=== PATIENT | female | born 1960 | race Caucasian/White ===

== ENCOUNTER 2018-01-11 11:59 | Observation (INO) | payer OTHER ==
[2018-01-11] MEDS ORDERED: TORAdol 30 mg Injection ONE (12:27)
--- NOTE | 2018-01-11 12:27 | ERPHSYRPT ---
- History of Present Illness Time Seen by Provider: 01/11/18 12:22 Historian: patient, family Exam Limitations: no limitations Patient Subjective Stated Complaint: Chest Pain beginning earlier today Triage Nursing Assessment: Pt presents to the ED with complaints of mid sternal chest pain, back and shoulder pain that began approximately 2 hour ago. Pt states diarrhea on monday. Pt denies other complaints at this time, no distress noted, skin PWD. Physician History: The patient is a 57-year-old female complaining of a sudden onset of "not feeling well". This began about an hour ago. She also states of having some pain in her epigastric region and between her shoulder blades in her back. She denies nausea or vomiting. She denies shortness of breath. She denies sweating. She thought maybe she needed to eat something to take away the pain. She had a Sprite in a granola bar with no effect. About 2 days ago she had some episodes of diarrhea. Her past medical history is significant for depression, diabetes, high cholesterol. Her past surgical history is significant for cholecystectomy, appendectomy, and partial hysterectomy. Timing/Duration: hour(s) (1) Activities at Onset: none Quality: aching Location: epigastric Chest Pain Radiation: back Severity of Pain-Max: moderate Severity of Pain-Current: moderate Modifying Factors: Improves With: eating (without relief) Associated Symptoms: denies symptoms Prior Chest Pain/Cardiac Workup: no prior chest pain Nitro Today/Relief: no nitro taken today Aspirin Treatment Today: 81 mg x 1, provided at home Allergies/Adverse Reactions: meperidine HCl [From Demerol] Allergy (Verified 10/05/16 12:20) Nausea and Vomiting Sulfa (Sulfonamide Antibiotics) Allergy (Verified 10/05/16 12:20) Swelling Home Medications: Aspirin 81 mg PO DAILY 04/10/14 [History] Metformin HCl 500 mg PO BID 04/10/14 [History] Paroxetine HCl [Paxil] 20 mg PO HS 04/10/14 [History] Bupropion HCl Xl 150 mg [Wellbutrin XL 150 MG] 150 mg PO DAILY 01/11/18 [ History] Lovastatin 40 mg PO DAILY 01/11/18 [History] Hx Tetanus, Diphtheria Vaccination/Date Given: Yes Hx Influenza Vaccination/Date Given: Yes Hx Pneumococcal Vaccination/Date Given: No Immunizations Up to Date: Yes - Review of Systems Constitutional: No Fever, No Chills Eyes: No Symptoms Ears, Nose, & Throat: No Symptoms Respiratory: No Cough, No Dyspnea Cardiac: Chest Pain, No Edema, No Syncope Abdominal/Gastrointestinal: Abdominal Pain Genitourinary Symptoms: No Dysuria Musculoskeletal: No Back Pain, No Neck Pain Skin: No Rash Neurological: No Dizziness, No Focal Weakness, No Sensory Changes Psychological: No Symptoms Endocrine: No Symptoms Hematologic/Lymphatic: No Symptoms Immunological/Allergic: No Symptoms All Other Systems: Reviewed and Negative - Past Medical History Pertinent Past Medical History: Yes Neurological History: No Pertinent History ENT History: No Pertinent History Cardiac History: No Pertinent History Respiratory History: No Pertinent History Endocrine Medical History: Diabetes Type II Musculoskeletal History: No Pertinent History GI Medical History: GERD, Gallbladder Disease History: No Pertinent History Psycho-Social History: Depression Female Reproductive Disorders: Endometriosis, Fibroids - Past Surgical History Past Surgical History: Yes Neuro Surgical History: No Pertinent History Cardiac: Cardiac Catheterization Respiratory: No Pertinent History Gastrointestinal: No Pertinent History, Appendectomy, Cholecystectomy Genitourinary: No Pertinent History Musculoskeletal: No Pertinent History Female Surgical History: Section, Tubal Ligation, Other Other Surgical History: expl.lap for endometriosis with removal of endo.,c- section x two, colonoscopy,egd - Social History Smoking Status: Never smoker Exposure to second hand smoke: No Drug Use: none Patient Lives Alone: No - Female History Hx Now: No - Nursing Vital Signs Nursing Vital Signs: Initial Vital Signs Temperature 97.4 F 01/11/18 12:04 Pulse Rate 65 01/11/18 12:04 Respiratory Rate 15 01/11/18 12:04 Blood Pressure 113/81 01/11/18 12:04 O2 Sat by Pulse Oximetry 100 01/11/18 12:04 Pain Scale Pain Intensity 3 - Physical Exam General Appearance: mild distress Eye Exam: PERRL/EOMI, eyes nml inspection Ears, Nose, Throat Exam: normal ENT inspection, moist mucous membranes Neck Exam: normal inspection, non-tender, supple, full range of motion Respiratory Exam: normal breath sounds, lungs clear, No respiratory distress Cardiovascular Exam: regular rate/rhythm, normal heart sounds Gastrointestinal/Abdomen Exam: tenderness (epigastric) Pelvic Exam: not done Rectal Exam: not done Back Exam: normal inspection, No CVA tenderness, No vertebral tenderness Extremity Exam: normal inspection, normal range of motion Neurologic Exam: alert, oriented x 3, cooperative, normal mood/affect, sensation nml, No motor deficits Skin Exam: normal color, warm, dry SpO2 Interpretation: normal SpO2: 100 Oxygen Delivery: Room Air - Course EKG Interpreted by Me: RATE, Sinus Rhythm, NORMAL AXIS, NORMAL INTERVALS, NORMAL QRS, NORMAL ST-T, Other (No change compared to EKG 04/04/14.) - Radiology Exams Chest X-ray Interpretation: Reviewed by me, Teleradiologist Report, Negative (per Dr Real) - CT Exams Abdomen/Pelvis CT Interpretation: Negative (No aortic aneurysm/dissection per Dr Real), Tele- radiologist Report Ordered Tests: Active Orders 24 hr Category Date Time Status [employer] Supervisor STAT Care 01/11/18 12:29 Active EKG-ER Only STAT Care 01/11/18 12:28 Active IV Insertion STAT Care 01/11/18 12:20 Active Orthostatic Vital Signs STAT Care 01/11/18 12:30 Active ABDOMEN AND PELVIS W CONTRAST [CT] Stat Exams 01/11/18 14:10 Completed CHEST 2 VIEWS (PA AND LAT) Stat Exams 01/11/18 12:28 Completed CBC W DIFF Stat Lab 01/11/18 12:20 Completed CK-Creatinine Phosphokinase Stat Lab 01/11/18 12:20 Completed CMP Stat Lab 01/11/18 12:20 Completed D-DIMER QUANTITATION Stat Lab 01/11/18 12:20 Completed NT PRO BNP Stat Lab 01/11/18 12:20 Completed PROTIME WITH INR Stat Lab 01/11/18 12:20 Completed PTT Stat Lab 01/11/18 12:20 Completed TROPONIN Q3H Lab 01/11/18 12:20 Completed TROPONIN Q3H Lab 01/11/18 15:30 Ordered TROPONIN Q3H Lab 01/11/18 18:30 Ordered TROPONIN Q3H Lab 01/11/18 21:30 Ordered TROPONIN Q3H Lab 01/12/18 00:30 Ordered UA W/RFX UR CULTURE Stat Lab 01/11/18 12:31 Uncollected Medication Summary Discontinued Medications Generic Name Dose Route Start Last Admin Trade Name Freq PRN Reason Stop Dose Admin Aspirin 243 mg 01/11/18 12:28 01/11/18 12:34 Baby Aspirin 81 Mg Chew PO 01/11/18 12:29 243 mg STAT ONE Administration Aspirin Confirm 01/11/18 12:30 Baby Aspirin 81 Mg Chew Administered 01/11/18 12:31 Dose 243 mg .ROUTE .STK-MED ONE Famotidine 20 mg 01/11/18 12:28 01/11/18 12:35 Pepcid 20 Mg Vial IV 01/11/18 12:29 20 mg STAT ONE Administration Famotidine Confirm 01/11/18 12:33 Pepcid 20 Mg Vial Administered 01/11/18 12:34 Dose 20 mg IV .STK-MED ONE Sodium Chloride 1,000 mls @ 999 mls/hr 01/11/18 12:28 01/11/18 12:34 Sodium Chloride 0.9% 1000 Ml IV 01/11/18 13:28 999 mls/hr .Q1H1M STA Administration Sodium Chloride Confirm 01/11/18 12:33 Sodium Chloride 0.9% 1000 Ml Administered 01/11/18 12:34 Dose 1,000 mls @ ud .ROUTE .STK-MED ONE Ketorolac Tromethamine Confirm 01/11/18 12:27 Toradol 30 Mg Injection Administered 01/11/18 12:28 Dose 30 mg .ROUTE .STK-MED ONE Ketorolac Tromethamine 30 mg 01/11/18 12:30 01/11/18 12:35 Toradol 30 Mg Injection IV 01/11/18 12:31 30 mg STAT ONE Administration Morphine Sulfate 4 mg 01/11/18 14:07 01/11/18 14:17 Morphine Sulfate 4 Mg Inj IV 01/11/18 14:08 4 mg STAT ONE Administration Morphine Sulfate Confirm 01/11/18 14:15 Morphine Sulfate 4 Mg Inj Administered 01/11/18 14:16 Dose 4 mg .ROUTE .STK-MED ONE Ondansetron HCl 4 mg 01/11/18 12:28 01/11/18 12:35 Zofran 4 Mg/2 Ml Vial IV 01/11/18 12:29 4 mg STAT ONE Administration Ondansetron HCl Confirm 01/11/18 12:33 Zofran 4 Mg/2 Ml Vial Administered 01/11/18 12:34 Dose 4 mg .ROUTE .STK-MED ONE Lab/Rad Data: Laboratory Result Diagrams 01/11/18 12:20 01/11/18 12:20 Laboratory Results 01/11/18 01/11/18 01/11/18 Range/Units 12:20 12:20 12:20 WBC (4.0-10.5) K/mm3 RBC (4.1-5.4) M/mm3 Hgb (12.0-16.0) gm/dl Hct (35-47) % MCV (78-100) fl MCH (26-32) pg MCHC (32-36) g/dl RDW (11.5-14.0) % Plt Count (150-450) K/mm3 MPV (6-9.5) fl Gran % (36.0-66.0) % Eos # (Auto) (0-0.5) Absolute Lymphs (auto) (1.0-4.6) Absolute Monos (auto) (0.0-1.3) Lymphocytes % (24.0-44.0) % Monocytes % (0.0-12.0) % Eosinophils % (0.00-5.0) % Basophils % (0.0-0.4) % Absolute Granulocytes (1.4-6.9) Basophils # (0-0.4) PT 12.2 (9.95-12.35) SECONDS INR 1.05 (0.8-3.0) APTT 29.5 (25.3-37.0) SECONDS D-Dimer 330 (215-500) ng/mL Sodium 144 (137-145) mmol/L Potassium 3.6 (3.5-5.1) mmol/L Chloride 105 (98-107) mmol/L Carbon Dioxide 27 (22-30) mmol/L Anion Gap 16.0 H (5-15) MEQ/L BUN 14 (7-17) mg/dL Creatinine 0.79 (0.52-1.04) mg/dL Estimated GFR > 60.0 ML/MIN Glucose 105 (74-106) mg/dL Calcium 9.4 (8.4-10.2) mg/dL Total Bilirubin 1.20 (0.2-1.3) mg/dL AST 79 H (14-36) U/L ALT 34 (0-35) U/L Alkaline Phosphatase 166 H (38-126) U/L Creatine Kinase 62 (30-135) U/L Troponin I < 0.012 (0.000-0.034) ng/mL NT-Pro-B Natriuret Pep 55.9 (0-900) pg/mL Serum Total Protein 7.5 (6.3-8.2) g/dL Albumin 4.3 (3.5-5.0) g/dL 01/11/18 Range/Units 12:20 WBC 7.7 (4.0-10.5) K/mm3 RBC 4.48 (4.1-5.4) M/mm3 Hgb 13.8 (12.0-16.0) gm/dl Hct 40.7 (35-47) % MCV 90.8 (78-100) fl MCH 30.8 (26-32) pg MCHC 33.9 (32-36) g/dl RDW 12.3 (11.5-14.0) % Plt Count 289 (150-450) K/mm3 MPV 9.2 (6-9.5) fl Gran % 65.4 (36.0-66.0) % Eos # (Auto) 0.23 (0-0.5) Absolute Lymphs (auto) 1.95 (1.0-4.6) Absolute Monos (auto) 0.47 (0.0-1.3) Lymphocytes % 25.2 (24.0-44.0) % Monocytes % 6.1 (0.0-12.0) % Eosinophils % 3.0 (0.00-5.0) % Basophils % 0.3 (0.0-0.4) % Absolute Granulocytes 5.06 (1.4-6.9) Basophils # 0.02 (0-0.4) PT (9.95-12.35) SECONDS INR (0.8-3.0) APTT (25.3-37.0) SECONDS D-Dimer (215-500) ng/mL Sodium (137-145) mmol/L Potassium (3.5-5.1) mmol/L Chloride (98-107) mmol/L Carbon Dioxide (22-30) mmol/L Anion Gap (5-15) MEQ/L BUN (7-17) mg/dL Creatinine (0.52-1.04) mg/dL Estimated GFR ML/MIN Glucose (74-106) mg/dL Calcium (8.4-10.2) mg/dL Total Bilirubin (0.2-1.3) mg/dL AST (14-36) U/L ALT (0-35) U/L Alkaline Phosphatase (38-126) U/L Creatine Kinase (30-135) U/L Troponin I (0.000-0.034) ng/mL NT-Pro-B Natriuret Pep (0-900) pg/mL Serum Total Protein (6.3-8.2) g/dL Albumin (3.5-5.0) g/dL - Progress Progress: improved Air Movement: good Progress Note: 01/11/18 14:52 After pepcid 20 mg, zofran 4 mg, toradol 30 mg, MSO4 4 mg, and NS by IV, pt is feeling better. Discussed pt with Dr Glasgow who accepts pt to observation. Blood Culture(s) Obtained: No Antibiotics given: No Discussed with Dr.: Myah Will see patient in: hospital (observation) Counseled pt/family regarding: lab results, diagnosis, rad results - Departure Time of Disposition: 14:53 Departure Disposition: Observation (per Dr Glasgow) Clinical Impression: Chest pain Condition: Stable Critical Care Time: No Referrals: ACACIA GLASGOW [Primary Care Provider] -
[2018-01-11] MEDS ORDERED: Zofran 4 MG/2 ML VIAL IV ONE (12:28)
[2018-01-11] MEDS ORDERED: Pepcid 20 MG VIAL IV ONE ×2 (12:28→12:33)
[2018-01-11] MEDS ORDERED: Sodium Chloride 0.9% 1000 ML 1,000 ML IV STA (12:28)
[2018-01-11] MEDS ORDERED: BABY ASPIRIN 81 MG CHEW PO ONE (12:28)
[2018-01-11] MEDS ORDERED: BABY ASPIRIN 81 MG CHEW ONE (12:30)
[2018-01-11] MEDS ORDERED: TORAdol 30 mg Injection IV ONE (12:30)
[2018-01-11] MEDS ORDERED: Sodium Chloride 0.9% 1000 ML 1,000 ML ONE (12:33)
[2018-01-11] MEDS ORDERED: Zofran 4 MG/2 ML VIAL ONE (12:33)
[2018-01-11 12:36] LABS: BASOPHIL % 0.3 % (0.0-0.4); Basophil (Absolute #) 0.02 (0-0.4); Eosinophil (Absolute #) 0.23 (0-0.5); Granulocyte Absolute (ANC) 5.06 (1.4-6.9); Granulocytes % 65.4 % (36.0-66.0); Hematocrit 40.7 % (35-47); Hemoglobin 13.8 gm/dl (12.0-16.0); Lymphocyte (Absolute #) 1.95 (1.0-4.6); Lymphocytes % 25.2 % (24.0-44.0); Mean Cell Volume 90.8 fl (78-100); Mean Corpuscular Hemoglobin 30.8 pg (26-32); Mean Corpuscular Hgb Concent. 33.9 g/dl (32-36); Mean Platelet Volume 9.2 fl (6-9.5); Monocyte (Absolute #) 0.47 (0.0-1.3); Monocytes % 6.1 % (0.0-12.0); Platelet Count 289 K/mm3 (150-450); Red Blood Count 4.48 M/mm3 (4.1-5.4); Red Cell Distribution Width 12.3 % (11.5-14.0); White Blood Count 7.7 K/mm3 (4.0-10.5)
[2018-01-11 12:43] LABS: ALBUMIN 4.3 g/dL (3.5-5.0); ALKALINE PHOSPHATASE 166 U/L (38-126); BLOOD UREA NITROGEN 14 mg/dL (7-17); CHLORIDE 105 mmol/L (98-107); CK-Creatinine Phosphokinase 62 U/L (30-135); Calcium 9.4 mg/dL (8.4-10.2); Carbon Dioxide 27 mmol/L (22-30); Creatinine 1 0.79 mg/dL (0.52-1.04); Glucose 105 mg/dL (74-106); Potassium 3.6 mmol/L (3.5-5.1); SGOT/AST 79 U/L (14-36); SGPT/ALT 34 U/L (0-35); SODIUM 144 mmol/L (137-145); Total Protein 7.5 g/dL (6.3-8.2)
[2018-01-11 12:51] LABS: NT PRO BNP 55.9 pg/mL (0-900)
[2018-01-11 12:52] LABS: INR 1.05 (0.8-3.0)
[2018-01-11 12:55] LABS: PTT 29.5 SECONDS (25.3-37.0)
--- NOTE | 2018-01-11 13:07 | XRAY ---
Indication: Chest pain. Comparison: October 04, 2016. PA/lateral chest again demonstrates normal heart and lungs. Bony thorax intact. No new/acute findings.
[2018-01-11] MEDS ORDERED: MORPHINE SULFATE 4 MG INJ IV ONE (14:07)
[2018-01-11] MEDS ORDERED: MORPHINE SULFATE 4 MG INJ ONE (14:15)
--- NOTE | 2018-01-11 14:29 | XRAY ---
Indication: Lower chest/upper abdomen pain. Low blood pressure and heart rate. CTA chest, abdomen, and pelvis performed with special attention to the thoracoabdominal aorta using 80 cc Isovue 370 contrast. Two-dimensional sagittal and coronal reformatted images obtained. Comparison: CT renal stone study March 21, 2011. Thoracoabdominal aorta is normal in course and caliber without aneurysm/dissection or arteriosclerotic disease. Normal patent branching celiac, superior mesenteric, inferior mesenteric, and renal arteries. Visualized pelvic iliac arteries are also normal in CTA appearance. Heart is not enlarged. No pathologic mediastinal/hilar lymphadenopathy. Stable small hiatal hernia. Examination of the lung parenchyma demonstrates mild bilateral dependent atelectasis. Stable small left posterior gutter calcified granuloma. No suspicious pulmonary mass, infiltrate, or effusion. Noncontrasted stomach and bowel loops appear nonobstructed. Again previous appendectomy. Interval cholecystectomy. No free fluid/air. Remaining liver, pancreas, spleen, adrenal glands, kidneys, ureters, and bladder appear unremarkable. IVC unremarkable. No pathologic with apparent new lymphadenopathy. Osseous structures intact with minimal lower lumbar degenerative changes. Stable tiny fatty umbilical hernia. No ventral or inguinal hernias. Impression: 1. Normal thoracoabdominal aorta. 2. Stable small hiatal hernia, left lung base calcified granuloma, and tiny fatty umbilical hernia. 3. Remaining CTA chest, abdomen, and pelvis is negative. CT DI 22.01.
[2018-01-11 14:56] LABS: Appearance CLEAR (CLEAR); Bilirubin NEGATIVE (NEGATIVE); Blood NEGATIVE Ery/ul (0-5); Glucose NEGATIVE (NEGATIVE); Ketones NEGATIVE (NEGATIVE); Leukocyte Esterase NEGATIVE (NEGATIVE); Nitrite NEGATIVE (NEGATIVE); Protein,Urine Dip NEGATIVE (Negative); Specific Gravity 1.005 (1.005-1.025); Urobilinogen NORMAL mg/dL (0-1)
[2018-01-11] MEDS ORDERED: Versed 2 MG/2 ML Injection IV ONE (15:32)
[2018-01-11] MEDS ORDERED: DIPRIVAN 200 MG/20 ML IV ONE (15:32)
[2018-01-11] MEDS ORDERED: Zofran 4 MG/2 ML VIAL IV PRN (15:34)
[2018-01-11] MEDS ORDERED: MAALOX ES 30 ML UNIT DOSE PO PRN (15:34)
[2018-01-11] MEDS ORDERED: Nitrostat 0.4 MG Tablet SL PRN (15:34)
[2018-01-11] MEDS ORDERED: TYLENOL 325 MG PO PRN (15:34)
[2018-01-11] MEDS ORDERED: Senokot-S Tablet PO PRN (15:34)
[2018-01-11] MEDS ORDERED: MILK OF MAGNESIA 30 ML PO PRN (15:34)
[2018-01-11] MEDS ORDERED: Protonix 40MG Tablet PO SCH (17:15)
[2018-01-11] MEDS ORDERED: Protonix 40MG Tablet ONE (18:52)
[2018-01-11] MEDS: MORPHINE SULFATE 4 MG INJ IV PRN (20:28)
[2018-01-11] MEDS ORDERED: Paxil 20 MG PO SCH (22:00)
[2018-01-11] MEDS ORDERED: ZOCOR 20MG PO SCH (22:00)
[2018-01-11] MEDS ORDERED: NON-FORMULARY ITEM (Lovastatin [Lovastatin] 40 MG) PO SCH (22:00)
--- NOTE | 2018-01-11 22:36 | PCM.HP ---
History of Present Illness - Chief Complaint Chief Complaint: chest pain History of Present Illness: is a 57 year old female pt of mine from [facility] who came to ER today with epigastric pain. She was feeling OK this morning, then around 10 am had epigastric pain radiating to the mid back and shoulders. She was unable to sit still due to 9/10 pressure and discomfort. Some mild SOB and nausea; no palpitations. She felt presyncopal due to lightheadedness and weakness. 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 Her BP was 90 systolic which is quite low for her. She had an EKG and was told to go the the ER. In the ER her EKG was found to be unchanged from 4 yrs ago and her troponin was negative. WBC was normal. She did have an elevated AST to 79 and an alkaline phosphatase of 166. Her gallbladder has been removed. She had toradol and her pain went from 9/10 to 7/10. Now after having had morphine her pain is 3/10. She has not been pain free. For the past 2-3 weeks she has been having nausea and eating many small meals instead of big meals. No vomiting. Yesterday she was incontinent of sudden diarrhea but generally she is constipated. She has not been taking NSAIDs. Denies melena or hematochezia. For the last several weeks she has also complained of L flank pain. - Review of Systems Constitutional: Fatigue, Weakness Respiratory: Short Of Breath Cardiac: Chest Pain Abdominal/Gastrointestinal: Abdominal Pain, Nausea, Diarrhea, Constipation, Appetite Changes Genitourinary Symptoms: Flank Pain Psychological: Anxiety, Depression, No Suicidal Ideations Medications & Allergies Home Medications: Home Medication List Aspirin 81 mg PO DAILY 04/10/14 [History Confirmed 01/11/18] Metformin HCl 500 mg PO BID 04/10/14 [History Confirmed 01/11/18] Paroxetine HCl [Paxil] 20 mg PO HS 04/10/14 [History Confirmed 01/11/18] Bupropion HCl Xl 150 mg [Wellbutrin XL 150 MG] 150 mg PO DAILY 01/11/18 [ History Confirmed 01/11/18] Lovastatin 40 mg PO HS 01/11/18 [History Confirmed 01/11/18] Omeprazole 20 MG [Prilosec 20 mg] 40 mg PO DAILY PRN 01/11/18 [History Confirmed 01/11/18] Allergies/Adverse Reactions: Allergies Allergy/AdvReac Type Severity Reaction Status Date / Time meperidine HCl [From Demerol] Allergy Nausea and Verified 10/05/16 12:20 Vomiting Sulfa (Sulfonamide Allergy Swelling Verified 10/05/16 12:20 Antibiotics) - Past Medical History Past Medical History: Yes Neurological History: No Pertinent History ENT History: No Pertinent History Cardiac History: No Pertinent History Respiratory History: No Pertinent History Endocrine Medical History: Diabetes Type II Musculoskelatal History: No Pertinent History GI Medical History: GERD, Gallbladder Disease History: No Pertinent History Pyscho-Social History: Depression Reproductive Disorders: Endometriosis, Fibroids - Female History Are you now?: No - Past Surgical History Past Surgical History: Yes Neuro Surgical History: No Pertinent History Cardiac History: Cardiac Catheterization Respiratory Surgery: No Pertinent History GI Surgical History: No Pertinent History, Appendectomy, Cholecystectomy Genitourinary Surgical Hx: No Pertinent History Musculskeletal Surgical Hx: No Pertinent History Female Surgical History: Section, Tubal Ligation, Other Other Surgical History: expl.lap for endometriosis with removal of endo.,c- section x two, colonoscopy,egd - Social History Smoking Status: Never smoker Exposure to second hand smoke: No Alcohol: None Drug Use: none - Physical Exam Vital Signs: Vital Signs - 24 hr Temp Pulse Resp BP Pulse Ox 01/11/18 20:00 97.6 F 64 17 112/64 97 01/11/18 16:00 97.6 F 63 16 150/72 99 01/11/18 15:46 97.4 F 61 12 158/75 100 01/11/18 15:40 97.4 F 61 12 158/75 100 01/11/18 15:34 100 01/11/18 14:57 100 01/11/18 14:50 97.4 F 61 16 158/75 92 L 01/11/18 14:46 58 L 16 126/88 100 01/11/18 14:33 54 L 16 137/75 97 01/11/18 14:07 66 16 116/65 98 01/11/18 12:56 63 16 121/72 100 01/11/18 12:04 97.4 F 65 15 113/81 100 General Appearance: no apparent distress, alert Neurologic Exam: oriented x 3, cooperative Eye Exam: eyes nml inspection Ears, Nose, Throat Exam: moist mucous membranes Neck Exam: normal inspection, non-tender, No mass, No lymphadenopathy Respiratory Exam: normal breath sounds, lungs clear, No crackles/rales, No rhonchi, No wheezing Cardiovascular Exam: regular rate/rhythm, normal heart sounds, No murmur Gastrointestinal/Abdomen Exam: soft, normal bowel sounds, tenderness (epigastrum ; somewhat in RUQ and LUQ), guarding (mildly in epigastrum), No distention, No mass, No rebound Back Exam: normal inspection, CVA tenderness (on R), No rash Extremity Exam: normal inspection, No pedal edema, No swelling Skin Exam: normal color, warm, dry, No rash Results - Labs Lab/Micro Results: Lab Results-Last 24 Hours 01/11/18 01/11/18 01/11/18 Range/Units 15:43 17:08 18:30 Hemoglobin A1c 5.61 (4.5-6.0) % Troponin I < 0.012 < 0.012 (0.000-0.034) ng/mL 01/11/18 Range/Units 21:47 Hemoglobin A1c (4.5-6.0) % Troponin I < 0.012 (0.000-0.034) ng/mL - Other Procedures and Tests Respiratory Therapy 01/12/18 05:00 EKG ONCE 01/13/18 05:00 EKG ONCE 01/14/18 05:00 EKG ONCE Assessment/Plan (1) Chest pain Current Visit: Yes Status: Acute Assessment & Plan: will do serial troponins to rule out CO. Code(s): R07.9 - CHEST PAIN, UNSPECIFIED (2) Epigastric pain Current Visit: Yes Status: Acute Assessment & Plan: Differential includes nephrolithiasis, bile duct obstruction, peptic ulcer disease, pancreatitis. With her recent history of a few weeks of nausea, I would like for her to have an EGD (last done by Dr. Sol approx 1 year ago). Added amylase and lipase to her present labs. Do u/s in the morning (RUQ) - s/ p cholecystectomy but could have a stone or have passed a stone recently. Repeat CMP in a.m. Will discuss her CT with Dr. Farrell, may need to repeat her CT without contrast so as to not obscure a stone. Restart IV fluids. Code(s): R10.13 - EPIGASTRIC PAIN (3) Nausea Current Visit: Yes Status: Acute Code(s): R11.0 - NAUSEA
[2018-01-11] MEDS: Sodium Chloride 0.9% 1000 ML 1,000 ML IV SCH (22:40)
[2018-01-11 22:45] LABS: AMYLASE 56 U/L (30-110); LIPASE 144 U/L (23-300)
[2018-01-12 02:57] LABS: BASOPHIL % 0.5 % (0.0-0.4); Basophil (Absolute #) 0.03 (0-0.4); Eosinophil % 3.3 % (0.00-5.0); Eosinophil (Absolute #) 0.19 (0-0.5); Granulocyte Absolute (ANC) 3.59 (1.4-6.9); Granulocytes % 62.6 % (36.0-66.0); Hemoglobin 12.8 gm/dl (12.0-16.0); Lymphocyte (Absolute #) 1.52 (1.0-4.6); Lymphocytes % 26.5 % (24.0-44.0); Mean Cell Volume 91.8 fl (78-100); Mean Corpuscular Hemoglobin 30.9 pg (26-32); Mean Corpuscular Hgb Concent. 33.7 g/dl (32-36); Mean Platelet Volume 9.2 fl (6-9.5); Monocyte (Absolute #) 0.41 (0.0-1.3); Monocytes % 7.1 % (0.0-12.0); Platelet Count 261 K/mm3 (150-450); Red Blood Count 4.14 M/mm3 (4.1-5.4); Red Cell Distribution Width 12.6 % (11.5-14.0); White Blood Count 5.7 K/mm3 (4.0-10.5)
[2018-01-12 03:07] LABS: Risk Ratio 3.3
[2018-01-12 03:08] LABS: ALBUMIN 3.5 g/dL (3.5-5.0); ALKALINE PHOSPHATASE 149 U/L (38-126); ANION GAP 10.5 MEQ/L (5-15); BLOOD UREA NITROGEN 12 mg/dL (7-17); CHLORIDE 106 mmol/L (98-107); Calcium 9.1 mg/dL (8.4-10.2); Carbon Dioxide 30 mmol/L (22-30); Creatinine 1 0.76 mg/dL (0.52-1.04); Glucose 106 mg/dL (74-106); Potassium 4.8 mmol/L (3.5-5.1); SGOT/AST 112 U/L (14-36); SGPT/ALT 94 U/L (0-35); SODIUM 142 mmol/L (137-145); Total Protein 6.1 g/dL (6.3-8.2)
[2018-01-12] MEDS ORDERED: Lactated Ringers 1,000 ML IV SCH (07:30)
[2018-01-12] MEDS: MORPHINE SULFATE 4 MG INJ IV PRN (07:37)
--- NOTE | 2018-01-12 08:44 | PCM.NOTE ---
Date and Time: 01/12/18 0837 Subjective Assessment: Not feeling well this morning, stomach pain was 5/10, now 3-4/10 after IV morphine. Also c/o ALICEA which was 7/10 now improved but having nausea. Urinating well. Awaiting her EGD this morning. - Review of Systems Constitutional: No Fever Abdominal/Gastrointestinal: Abdominal Pain, Nausea Neurological: Headache Objective Exam General Appearance: mild distress, alert Neurologic Exam: oriented x 3, cooperative Skin Exam: normal color, warm, dry Respiratory Exam: normal breath sounds, lungs clear, No crackles/rales, No rhonchi, No wheezing Cardiovascular Exam: regular rate/rhythm, normal heart sounds, No murmur Gastrointestinal/Abdomen Exam: soft, normal bowel sounds, tenderness (most marked in epigastrum/ also LUQ, RUQ), No mass, No guarding, No rebound Extremity Exam: normal inspection, No pedal edema, No swelling OBJECTIVE DATA Vital Signs: Vital Signs - 24 hr Temp Pulse Resp BP Pulse Ox 01/12/18 07:51 97 01/12/18 07:34 97.7 F 67 16 119/64 97 01/12/18 04:00 98.0 F 62 17 111/61 95 01/12/18 03:04 97.7 F 67 16 119/64 97 01/12/18 00:00 97.9 F 55 L 18 118/59 95 01/11/18 20:00 97.6 F 64 17 112/64 97 01/11/18 19:34 97 01/11/18 16:00 97.6 F 63 16 150/72 99 01/11/18 15:46 97.4 F 61 12 158/75 100 01/11/18 15:40 97.4 F 61 12 158/75 100 01/11/18 15:34 100 01/11/18 14:57 100 01/11/18 14:50 97.4 F 61 16 158/75 92 L 01/11/18 14:46 58 L 16 126/88 100 01/11/18 14:33 54 L 16 137/75 97 01/11/18 14:07 66 16 116/65 98 01/11/18 12:56 63 16 121/72 100 01/11/18 12:04 97.4 F 65 15 113/81 100 Pain Assessment - Last Documented Pain Intensity 8 Pain Scale Used 0-10 Pain Scale Intake and Output: Intake & Output 01/09/18 01/10/18 01/11/18 01/12/18 11:59 11:59 11:59 11:59 Intake Total 899 Output Total 800 Balance 99 Weight 73.4 kg Lab Results: Accuchecks Date 01/12/18 Date 01/11/18 Time 07:30 Accucheck Value: 104 Accucheck Value: 144 Lab Results-Last 24 Hours 01/11/18 01/11/18 01/11/18 Range/Units 15:43 17:08 18:30 WBC (4.0-10.5) K/mm3 RBC (4.1-5.4) M/mm3 Hgb (12.0-16.0) gm/dl Hct (35-47) % MCV (78-100) fl MCH (26-32) pg MCHC (32-36) g/dl RDW (11.5-14.0) % Plt Count (150-450) K/mm3 MPV (6-9.5) fl Gran % (36.0-66.0) % Eos # (Auto) (0-0.5) Absolute Lymphs (auto) (1.0-4.6) Absolute Monos (auto) (0.0-1.3) Lymphocytes % (24.0-44.0) % Monocytes % (0.0-12.0) % Eosinophils % (0.00-5.0) % Basophils % (0.0-0.4) % Absolute Granulocytes (1.4-6.9) Basophils # (0-0.4) Sodium (137-145) mmol/L Potassium (3.5-5.1) mmol/L Chloride (98-107) mmol/L Carbon Dioxide (22-30) mmol/L Anion Gap (5-15) MEQ/L BUN (7-17) mg/dL Creatinine (0.52-1.04) mg/dL Estimated GFR ML/MIN Glucose (74-106) mg/dL Hemoglobin A1c 5.61 (4.5-6.0) % Calcium (8.4-10.2) mg/dL Total Bilirubin (0.2-1.3) mg/dL AST (14-36) U/L ALT (0-35) U/L Alkaline Phosphatase (38-126) U/L Troponin I < 0.012 < 0.012 (0.000-0.034) ng/mL Serum Total Protein (6.3-8.2) g/dL Albumin (3.5-5.0) g/dL Triglycerides (30-150) mg/dL Cholesterol (50-200) mg/dL LDL Cholesterol (30-100) mg/dL HDL Cholesterol (40-60) mg/dL Heart Disease Risk Ratio Amylase (30-110) U/L Lipase (23-300) U/L 01/11/18 01/11/18 01/12/18 Range/Units 21:47 Unknown 02:20 WBC (4.0-10.5) K/mm3 RBC (4.1-5.4) M/mm3 Hgb (12.0-16.0) gm/dl Hct (35-47) % MCV (78-100) fl MCH (26-32) pg MCHC (32-36) g/dl RDW (11.5-14.0) % Plt Count (150-450) K/mm3 MPV (6-9.5) fl Gran % (36.0-66.0) % Eos # (Auto) (0-0.5) Absolute Lymphs (auto) (1.0-4.6) Absolute Monos (auto) (0.0-1.3) Lymphocytes % (24.0-44.0) % Monocytes % (0.0-12.0) % Eosinophils % (0.00-5.0) % Basophils % (0.0-0.4) % Absolute Granulocytes (1.4-6.9) Basophils # (0-0.4) Sodium (137-145) mmol/L Potassium (3.5-5.1) mmol/L Chloride (98-107) mmol/L Carbon Dioxide (22-30) mmol/L Anion Gap (5-15) MEQ/L BUN (7-17) mg/dL Creatinine (0.52-1.04) mg/dL Estimated GFR ML/MIN Glucose (74-106) mg/dL Hemoglobin A1c (4.5-6.0) % Calcium (8.4-10.2) mg/dL Total Bilirubin (0.2-1.3) mg/dL AST (14-36) U/L ALT (0-35) U/L Alkaline Phosphatase (38-126) U/L Troponin I < 0.012 < 0.012 (0.000-0.034) ng/mL Serum Total Protein (6.3-8.2) g/dL Albumin (3.5-5.0) g/dL Triglycerides (30-150) mg/dL Cholesterol (50-200) mg/dL LDL Cholesterol (30-100) mg/dL HDL Cholesterol (40-60) mg/dL Heart Disease Risk Ratio Amylase 56 (30-110) U/L Lipase 144 (23-300) U/L 01/12/18 01/12/18 01/12/18 Range/Units 02:20 02:20 02:20 WBC 5.7 (4.0-10.5) K/mm3 RBC 4.14 (4.1-5.4) M/mm3 Hgb 12.8 (12.0-16.0) gm/dl Hct 38.0 (35-47) % MCV 91.8 (78-100) fl MCH 30.9 (26-32) pg MCHC 33.7 (32-36) g/dl RDW 12.6 (11.5-14.0) % Plt Count 261 (150-450) K/mm3 MPV 9.2 (6-9.5) fl Gran % 62.6 (36.0-66.0) % Eos # (Auto) 0.19 (0-0.5) Absolute Lymphs (auto) 1.52 (1.0-4.6) Absolute Monos (auto) 0.41 (0.0-1.3) Lymphocytes % 26.5 (24.0-44.0) % Monocytes % 7.1 (0.0-12.0) % Eosinophils % 3.3 (0.00-5.0) % Basophils % 0.5 (0.0-0.4) % Absolute Granulocytes 3.59 (1.4-6.9) Basophils # 0.03 (0-0.4) Sodium 142 (137-145) mmol/L Potassium 4.8 (3.5-5.1) mmol/L Chloride 106 (98-107) mmol/L Carbon Dioxide 30 (22-30) mmol/L Anion Gap 10.5 (5-15) MEQ/L BUN 12 (7-17) mg/dL Creatinine 0.76 (0.52-1.04) mg/dL Estimated GFR > 60.0 ML/MIN Glucose 106 (74-106) mg/dL Hemoglobin A1c (4.5-6.0) % Calcium 9.1 (8.4-10.2) mg/dL Total Bilirubin 1.20 (0.2-1.3) mg/dL AST 112 H (14-36) U/L ALT 94 H (0-35) U/L Alkaline Phosphatase 149 H (38-126) U/L Troponin I (0.000-0.034) ng/mL Serum Total Protein 6.1 L (6.3-8.2) g/dL Albumin 3.5 (3.5-5.0) g/dL Triglycerides 80 (30-150) mg/dL Cholesterol 176 (50-200) mg/dL LDL Cholesterol 90 (30-100) mg/dL HDL Cholesterol 53 (40-60) mg/dL Heart Disease Risk Ratio 3.3 Amylase (30-110) U/L Lipase (23-300) U/L Radiology Exams: Radiology Procedures Category Date Time Status BILE DUCT [US] Routine Exams 01/12/18 Ordered Assessment/Plan (1) Chest pain Current Visit: Yes Status: Acute Assessment & Plan: ruled out for NV with 5 negative troponins Code(s): R07.9 - CHEST PAIN, UNSPECIFIED (2) Epigastric pain Current Visit: Yes Status: Acute Assessment & Plan: Having EGD this morning. U/s also scheduled for this morning. Amylase and lipase were nl. LFTs more elevated this morning, although alk phos is mildly decreased. May need CT abd/pelvis without IV contrast, but will get other testing done first. Code(s): R10.13 - EPIGASTRIC PAIN (3) Nausea Current Visit: Yes Status: Acute Code(s): R11.0 - NAUSEA (4) Elevated LFTs Current Visit: Yes Status: Acute Code(s): R79.89 - OTHER SPECIFIED ABNORMAL FINDINGS OF BLOOD CHEMISTRY
[2018-01-12] MEDS ORDERED: ZOCOR 20MG PO SCH (10:00)
[2018-01-12] MEDS ORDERED: ECOTRIN 81 MG PO SCH (10:00)
[2018-01-12] MEDS ORDERED: Wellbutrin XL 150 MG PO SCH (10:00)
[2018-01-12] MEDS ORDERED: Ecotrin 325 MG PO SCH (10:00)
[2018-01-12] MEDS ORDERED: Protonix 40MG Tablet PO SCH (10:00)
--- NOTE | 2018-01-12 10:07 | OP ---
SURGERY DATE/TIME: 01/12/2018 0916 PREOPERATIVE DIAGNOSIS: Epigastric pain radiating to the back. POSTOPERATIVE DIAGNOSIS: Mild gastritis. PROCEDURE: Esophagogastroduodenoscopy with biopsy. SURGEON: Dr. Pedersen. ANESTHESIA: Medications were given by the anesthesia department. BRIEF HISTORY: The patient is a 57 year old white female who has been admitted to the hospital for complaints of epigastric abdominal pain radiating through to the back. She has had CT scan which has been essentially unrevealing. She had a previous cholecystectomy. The patient was felt the need to have endoscopic evaluation and she was appraised of the risks of the procedure including the risk of perforation, phlebitis, untoward reaction to medication, bleeding and missed lesions. The patient verbalized her understanding and desired to have the procedure performed. DESCRIPTION OF PROCEDURE: The patient was given the medications by the anesthesia department. She had continuous pulse oximetry, ECG monitoring, intermittent blood pressure monitoring and tidal CO2 monitoring during the examination. She was placed in the left lateral decubitus position. A bite block was placed and the flexible Olympus gastroscope was used to intubate the oropharynx. A view of the larynx was obtained and was normal. The scope was easily introduced in the esophagus which was normal throughout its length. The stomach was entered where normal gastric rugal folds were seen. The gastric vidal was suctioned dry and the stomach was re-insufflated. The scope was passed along the greater curvature of the stomach to the antrum which appeared with streaks of erythema leading the pylorus. The pylorus was slightly difficult to intubate but passage through there was achieved with inspection of the duodenum being essentially normal. The scope is then withdrawn towards the stomach. Again, a retroflex view was obtained of the lesser curvature, fundus and cardia regions of the stomach and these appeared to be essentially normal. The scope was then redirected towards the antrum. Biopsies were obtained to rule out the presence of Helicobacter pylori-type organisms. The scope was then removed from the patient who tolerated the procedure well and was sent back to the hospital [facility] in good condition. Of note, the patient had slight elevation in the liver enzymes. The SGOT had actually risen just a little bit. The patient has pending ultrasound of the abdomen and would suggest also doing MRCP to evaluate for small stones in the pancreas causing the problems.
[2018-01-12] MEDS: Sodium Chloride 0.9% 1000 ML 1,000 ML IV SCH (11:04)
--- NOTE | 2018-01-12 12:26 | XRAY ---
Indication: Abdomen pain. Elevated AST and alkaline phosphatase. Cholecystectomy. Two-dimensional right upper quadrant abdominal sonogram performed. Comparison: Gallbladder sonogram February 12, 2014. There has been interval cholecystectomy. Common bile duct measures 4.8 mm. No intrahepatic biliary distention. Remaining visualized portions of the liver, pancreas, and right kidney appear sonographically unremarkable. Right kidney measures 9.7 cm in length. No ascites. Impression: Cholecystectomy in a otherwise negative right upper quadrant sonogram.
--- NOTE | 2018-01-12 14:13 | XRAY ---
Indication: Abdomen pain and nausea. Elevated liver enzymes. Cholecystectomy 2 years ago. Conventional MRCP was performed. Comparison: None Gallbladder surgically absent without abnormal fluid collection in the gallbladder fossa. Visualized biliary tree and pancreatic duct appear normal. Common bile duct measures 5 mm in diameter without focal stricture, obstruction, or filling defect. Normal emptying into the second portion of the duodenum. Visualized stomach and bowel loops appear nonobstructed. No free fluid. Remaining visualized liver, pancreas, spleen, adrenal glands, kidneys, proximal ureters, aorta, and IVC appear unremarkable. Impression: Cholecystectomy. Remaining MRCP is negative.
--- NOTE | 2018-01-12 16:45 | PCM.DS ---
Discharge Summary Date of Admission: 01/11/18 15:31 Admitting Physician: ACACIA BENOIT Primary Care Provider: ACACIA BENOIT Allergies Allergies meperidine HCl [From Demerol] Allergy (Verified 10/05/16 12:20) Nausea and Vomiting Sulfa (Sulfonamide Antibiotics) Allergy (Verified 10/05/16 12:20) Swelling Hospital Summary - Hospital Course Hospital Course: Pt admitted through ER yesterday with abd pain, labs normal aside from elevated AST (79) and Alk Phos (166). She was ruled out for MO with 5 negative troponins and 3 negative EKGs. This morning her AST was 112, ALT was 49, and Alk Phos was 149. She is feeling somewhat better, abd pain is now 1-2/10. She had an EGD this morning with mild gastritis. MRCP negative. Bile duct U/S neg. She has tolerated CLD and would like to go home. She will have an abd/ pelvis CT without contrast and if negative she will be discharged to home. - Vitals & Intake/Output Vital Signs: Vital Signs Temperature 97.9 F 01/12/18 12:00 Pulse Rate 65 01/12/18 12:00 Respiratory Rate 16 01/12/18 12:00 Blood Pressure 110/68 01/12/18 12:00 O2 Sat by Pulse Oximetry 97 01/12/18 15:52 Intake & Output: Intake & Output 01/10/18 01/11/18 01/12/18 01/13/18 11:59 11:59 11:59 11:59 Intake Total 899 0 Output Total 800 Balance 99 0 Weight 73.4 kg - Lab Result Diagrams: 01/12/18 02:20 01/12/18 02:20 Lab Results-Last 24 Hrs: Accuchecks Date 01/12/18 Date 01/12/18 Date 01/11/18 Time 11:30 Time 07:30 Accucheck Value: 101 Accucheck Value: 104 Accucheck Value: 144 Lab Results-Last 24 Hours 01/11/18 01/11/18 01/11/18 Range/Units 17:08 18:30 21:47 WBC (4.0-10.5) K/mm3 RBC (4.1-5.4) M/mm3 Hgb (12.0-16.0) gm/dl Hct (35-47) % MCV (78-100) fl MCH (26-32) pg MCHC (32-36) g/dl RDW (11.5-14.0) % Plt Count (150-450) K/mm3 MPV (6-9.5) fl Gran % (36.0-66.0) % Eos # (Auto) (0-0.5) Absolute Lymphs (auto) (1.0-4.6) Absolute Monos (auto) (0.0-1.3) Lymphocytes % (24.0-44.0) % Monocytes % (0.0-12.0) % Eosinophils % (0.00-5.0) % Basophils % (0.0-0.4) % Absolute Granulocytes (1.4-6.9) Basophils # (0-0.4) Sodium (137-145) mmol/L Potassium (3.5-5.1) mmol/L Chloride (98-107) mmol/L Carbon Dioxide (22-30) mmol/L Anion Gap (5-15) MEQ/L BUN (7-17) mg/dL Creatinine (0.52-1.04) mg/dL Estimated GFR ML/MIN Glucose (74-106) mg/dL Hemoglobin A1c 5.61 (4.5-6.0) % Calcium (8.4-10.2) mg/dL Total Bilirubin (0.2-1.3) mg/dL AST (14-36) U/L ALT (0-35) U/L Alkaline Phosphatase (38-126) U/L Troponin I < 0.012 < 0.012 (0.000-0.034) ng/mL Serum Total Protein (6.3-8.2) g/dL Albumin (3.5-5.0) g/dL Triglycerides (30-150) mg/dL Cholesterol (50-200) mg/dL LDL Cholesterol (30-100) mg/dL HDL Cholesterol (40-60) mg/dL Heart Disease Risk Ratio Amylase (30-110) U/L Lipase (23-300) U/L 01/11/18 01/12/18 01/12/18 Range/Units Unknown 02:20 02:20 WBC (4.0-10.5) K/mm3 RBC (4.1-5.4) M/mm3 Hgb (12.0-16.0) gm/dl Hct (35-47) % MCV (78-100) fl MCH (26-32) pg MCHC (32-36) g/dl RDW (11.5-14.0) % Plt Count (150-450) K/mm3 MPV (6-9.5) fl Gran % (36.0-66.0) % Eos # (Auto) (0-0.5) Absolute Lymphs (auto) (1.0-4.6) Absolute Monos (auto) (0.0-1.3) Lymphocytes % (24.0-44.0) % Monocytes % (0.0-12.0) % Eosinophils % (0.00-5.0) % Basophils % (0.0-0.4) % Absolute Granulocytes (1.4-6.9) Basophils # (0-0.4) Sodium (137-145) mmol/L Potassium (3.5-5.1) mmol/L Chloride (98-107) mmol/L Carbon Dioxide (22-30) mmol/L Anion Gap (5-15) MEQ/L BUN (7-17) mg/dL Creatinine (0.52-1.04) mg/dL Estimated GFR ML/MIN Glucose (74-106) mg/dL Hemoglobin A1c (4.5-6.0) % Calcium (8.4-10.2) mg/dL Total Bilirubin (0.2-1.3) mg/dL AST (14-36) U/L ALT (0-35) U/L Alkaline Phosphatase (38-126) U/L Troponin I < 0.012 (0.000-0.034) ng/mL Serum Total Protein (6.3-8.2) g/dL Albumin (3.5-5.0) g/dL Triglycerides 80 (30-150) mg/dL Cholesterol 176 (50-200) mg/dL LDL Cholesterol 90 (30-100) mg/dL HDL Cholesterol 53 (40-60) mg/dL Heart Disease Risk Ratio 3.3 Amylase 56 (30-110) U/L Lipase 144 (23-300) U/L 01/12/18 01/12/18 Range/Units 02:20 02:20 WBC 5.7 (4.0-10.5) K/mm3 RBC 4.14 (4.1-5.4) M/mm3 Hgb 12.8 (12.0-16.0) gm/dl Hct 38.0 (35-47) % MCV 91.8 (78-100) fl MCH 30.9 (26-32) pg MCHC 33.7 (32-36) g/dl RDW 12.6 (11.5-14.0) % Plt Count 261 (150-450) K/mm3 MPV 9.2 (6-9.5) fl Gran % 62.6 (36.0-66.0) % Eos # (Auto) 0.19 (0-0.5) Absolute Lymphs (auto) 1.52 (1.0-4.6) Absolute Monos (auto) 0.41 (0.0-1.3) Lymphocytes % 26.5 (24.0-44.0) % Monocytes % 7.1 (0.0-12.0) % Eosinophils % 3.3 (0.00-5.0) % Basophils % 0.5 (0.0-0.4) % Absolute Granulocytes 3.59 (1.4-6.9) Basophils # 0.03 (0-0.4) Sodium 142 (137-145) mmol/L Potassium 4.8 (3.5-5.1) mmol/L Chloride 106 (98-107) mmol/L Carbon Dioxide 30 (22-30) mmol/L Anion Gap 10.5 (5-15) MEQ/L BUN 12 (7-17) mg/dL Creatinine 0.76 (0.52-1.04) mg/dL Estimated GFR > 60.0 ML/MIN Glucose 106 (74-106) mg/dL Hemoglobin A1c (4.5-6.0) % Calcium 9.1 (8.4-10.2) mg/dL Total Bilirubin 1.20 (0.2-1.3) mg/dL AST 112 H (14-36) U/L ALT 94 H (0-35) U/L Alkaline Phosphatase 149 H (38-126) U/L Troponin I (0.000-0.034) ng/mL Serum Total Protein 6.1 L (6.3-8.2) g/dL Albumin 3.5 (3.5-5.0) g/dL Triglycerides (30-150) mg/dL Cholesterol (50-200) mg/dL LDL Cholesterol (30-100) mg/dL HDL Cholesterol (40-60) mg/dL Heart Disease Risk Ratio Amylase (30-110) U/L Lipase (23-300) U/L Micro Results-Entire Visit: Accuchecks Date 01/12/18 Date 01/12/18 Date 01/11/18 Time 11:30 Time 07:30 Accucheck Value: 101 Accucheck Value: 104 Accucheck Value: 144 - Radiology Exams Ordered Rad Exams-Entire Visit: Radiology Procedures Category Date Time Status ABDOMEN AND PELVIS W/0 CONTRAS [CT] Urgent Exams 01/12/18 15:26 Ordered BILE DUCT [US] Routine Exams 01/12/18 12:04 Completed MRI ABD W/O CONTRAST [MRI] Urgent Exams 01/12/18 13:01 Completed - Procedures and Test Procedures and Tests throughout Hospitalization: Therapy Orders & Screens 01/11/18 20:30 EKG ONCE Comment: Diagnosis: chest pain 01/12/18 05:00 EKG ONCE Comment: Diagnosis: chest pain 01/13/18 05:00 EKG ONCE Comment: Diagnosis: chest pain 01/14/18 05:00 EKG ONCE Comment: Diagnosis: chest pain Discharge Exam General Appearance: mild distress, alert Neurologic Exam: oriented x 3, cooperative Skin Exam: normal color, warm, dry, No rash Eye Exam: eyes nml inspection Ears, Nose, Throat Exam: moist mucous membranes Respiratory Exam: No respiratory distress Gastrointestinal/Abdomen Exam: No distention Extremity Exam: normal inspection Final Diagnosis/Problem List - Final Discharge Diagnosis/Problem (1) Chest pain Current Visit: Yes Status: Acute Onset Date: ~01/11/18 Assessment & Plan: MO ruled out. (2) Epigastric pain Current Visit: Yes Status: Acute Onset Date: ~01/11/18 Assessment & Plan: Mild gastritis on EGD. Amylase/lipase negative. MRCP neg, bile duct u/s neg. Abd pelvis noncontrast CT pending; if neg can d/c home. (3) Nausea Current Visit: Yes Status: Acute Onset Date: ~01/11/18 (4) Elevated LFTs Current Visit: Yes Status: Acute Onset Date: ~01/11/18 Assessment & Plan: Recheck labs in a.m. Will sign pt out to on-call doctor. - Discharge Disposition: Home, Self-Care Condition: Good Prescriptions: New Ondansetron ODT 4 MG [Zofran Odt 4 mg] 4 mg PO Q6H PRN PRN #30 tab.rapdis PRN Reason: Nausea Continue Metformin HCl 500 mg PO BID Paroxetine HCl [Paxil] 20 mg PO HS Aspirin 81 mg PO DAILY Bupropion HCl Xl 150 mg [Wellbutrin XL 150 MG] 150 mg PO DAILY Lovastatin 40 mg PO HS Omeprazole 20 MG [Prilosec 20 mg] 40 mg PO DAILY PRN PRN Reason: Gas Or Belching Instructions: Upper GI Endoscopy (DC) Follow up with: ACACIA BENOIT [Primary Care Provider] - 01/19/18 10:00 am
[2018-01-12 18:28] VITALS: BP 120/63; PULSE 67; O2SAT 96
--- NOTE | 2018-01-12 22:15 | XRAY ---
Indication: Left flank/left back pain. Multiple contiguous axial images obtained through the abdomen and pelvis without contrast as ordered. Comparison: One day earlier. Lung bases again demonstrates mild bilateral dependent atelectasis and tiny left posterior gutter calcified granuloma. No infiltrate or effusion. Heart is not enlarged. Stable small hiatal hernia. Noncontrasted stomach and bowel loops again nonobstructed. Previous cholecystectomy, hysterectomy, and appendectomy. No free fluid/air. Remaining liver, pancreas, spleen, adrenal glands, kidneys, ureters, and bladder appear unremarkable for noncontrast exam. Osseous structures intact again with lower lumbar degenerative changes. Stable tiny fatty umbilical hernia. Impression: 1. Stable small hiatal hernia and tiny fatty umbilical hernia. 2. No new or acute intra-abdominal/pelvic abnormalities on this noncontrast exam. Comment: Preliminary interpretation was made by [facility]. No discrepancy. CTDI 21.23
[2018-01-14 04:33] LABS: HEPATITIS B VIRUS CORE TOT AB Non Reactive (Non Reactive); HEPATITIS C VIRUS ANTIBODY Non Reactive (Non Reactive); Hepatitis B Surface Antigen Non Reactive (Non Reactive)
== END 2018-01-12 19:10 | disposition home or self-care (01) ==
LOC: ED 11:59 → MED SURG 15:31
PROVIDERS: ADMIT Family Medicine; ATTEND Family Medicine
DX: R07.9 Chest pain, unspecified (principal); R10.13 Epigastric pain; K29.70 Gastritis, unspecified, without bleeding; R79.89 Other specified abnormal findings of blood chemistry; F41.8 Other specified anxiety disorders; E11.9 Type 2 diabetes mellitus without complications; K21.9 Gastro-esophageal reflux disease without esophagitis; N80.9 Endometriosis, unspecified
CPT/HCPCS: 36000; 36415; 71046; 74176; 74177; 74181; 76705; 80053; 80061; 80074; 81002; 82150; 82550; 83036; 83690; 83721; 83880; 84484; 85025; 85379; 85610; 85730; 93005; 93041; 93268; 96374; 96375; 99285; J1885; J2250; J2270; J2405; J2704; A9270-GY; G0378

== ENCOUNTER 2020-07-29 14:56 | Inpatient (IN) | payer OTHER ==
[2020-07-29] MEDS ORDERED: Zofran 4 MG/2 ML VIAL IV STA (15:07)
--- NOTE | 2020-07-29 15:07 | ERPHSYRPT ---
- History of Present Illness Time Seen by Provider: 07/29/20 15:02 Source: patient Exam Limitations: clinical condition Physician History: This is a diabetic 60-year-old white female who tested positive for the douglas 19 virus recently. Her symptoms of cough, headache, body aches, shortness of breath, decreased appetite have worsened since her diagnosis. She has had symptoms for approximately 2 weeks. She was brought into the hospital department for evaluation. Upon arrival, the patient's oxygen saturation was 90 to 91% on room air. Her her primary symptoms are headache, cough myalgias arthralgias and decreased appetite. She has had no nausea vomiting or diarrhea. She does not have chest pain. Timing/Duration: day(s) (5) Cough Quality/Degree: mild, dry cough Possible Cause: no prior episodes Modifying Factors: Improves With: coughing, exertion Associated Symptoms: cough, muscle aches, nasal congestion, shortness of breath, No chest pain/soreness Allergies/Adverse Reactions: meperidine HCl [From Demerol] Allergy (Verified 07/29/20 15:04) Nausea and Vomiting Sulfa (Sulfonamide Antibiotics) Allergy (Verified 07/29/20 15:04) Swelling Home Medications: Aspirin 81 mg PO DAILY 04/10/14 [History] Bupropion HCl Xl 150 mg [Wellbutrin XL 150 MG] 300 mg PO DAILY 01/11/18 [History] Lovastatin 40 mg PO HS 01/11/18 [History] Apixaban [Eliquis 2.5 mg Tablet] 2.5 mg PO BID 07/29/20 [History] Escitalopram Oxalate 10 mg [Lexapro 10 MG] 10 mg PO DAILY 07/29/20 [History] Escitalopram Oxalate [Lexapro] 5 mg PO HS 07/29/20 [History] Hydrocodone/APAP 5-325 Tab^^^ [Ava 5-325 Tablet^^^] 1 tab PO Q6HPRN PRN MDD 6 07/29/20 [History] Metformin HCl Xr 500 mg [Glucophage XR 500 MG] 500 mg PO DAILY 07/29/20 [History] Hx Tetanus, Diphtheria Vaccination/Date Given: Yes Hx Influenza Vaccination/Date Given: Yes Hx Pneumococcal Vaccination/Date Given: No Travel Risk - International Travel Have you traveled outside of the country in past 3 weeks: No - Coronavirus Screening Are you exhibiting any of the following symptoms?: Yes Symptoms: Fever, Cough: New Onset, Shortness of Breath, Headaches/Body Aches/Fatigue Close contact with a COVID-19 positive Pt in past 14-21 Days: Yes - Review of Systems Constitutional: No Symptoms Eyes: No Symptoms Ears, Nose, & Throat: Nose Congestion Respiratory: Cough, Dyspnea Cardiac: No Symptoms Abdominal/Gastrointestinal: No Symptoms Genitourinary Symptoms: No Symptoms Musculoskeletal: Arthralgias, Myalgias Skin: No Symptoms Neurological: Headache Psychological: No Symptoms Endocrine: No Symptoms Hematologic/Lymphatic: No Symptoms Immunological/Allergic: No Symptoms All Other Systems: Reviewed and Negative - Past Medical History Pertinent Past Medical History: Yes Neurological History: No Pertinent History ENT History: No Pertinent History Cardiac History: No Pertinent History Respiratory History: No Pertinent History Endocrine Medical History: Diabetes Type II Musculoskeletal History: No Pertinent History GI Medical History: GERD, Gallbladder Disease History: No Pertinent History Psycho-Social History: Depression Female Reproductive Disorders: Endometriosis, Fibroids - Past Surgical History Past Surgical History: Yes Neuro Surgical History: No Pertinent History Cardiac: Cardiac Catheterization Respiratory: No Pertinent History Gastrointestinal: No Pertinent History, Appendectomy, Cholecystectomy Genitourinary: No Pertinent History Musculoskeletal: No Pertinent History Female Surgical History: Section, Tubal Ligation, Other Other Surgical History: expl.lap for endometriosis with removal of endo.,c- section x two, colonoscopy,egd - Social History Smoking Status: Never smoker Exposure to second hand smoke: No Drug Use: none Patient Lives Alone: No - Nursing Vital Signs Nursing Vital Signs: Initial Vital Signs Temperature 98.5 F 07/29/20 15:04 Pulse Rate 88 07/29/20 15:04 Respiratory Rate 20 07/29/20 15:04 Blood Pressure 125/74 07/29/20 15:04 O2 Sat by Pulse Oximetry 90 L 07/29/20 15:04 Pain Scale Pain Intensity 0 - Physical Exam General Appearance: mild distress, alert, anxiety Eye Exam: PERRL/EOMI, eyes nml inspection Ears, Nose, Throat Exam: normal ENT inspection, moist mucous membranes Neck Exam: normal inspection, non-tender, supple, full range of motion Respiratory Exam: normal breath sounds, lungs clear, respiratory distress, airway intact, No chest tenderness Cardiovascular Exam: regular rate/rhythm, normal heart sounds, normal peripheral pulses Gastrointestinal/Abdomen Exam: soft, normal bowel sounds, No tenderness Pelvic Exam: not done Rectal Exam: not done Back Exam: normal inspection, normal range of motion, No CVA tenderness, No vertebral tenderness Extremity Exam: normal inspection, normal range of motion, pelvis stable Neurologic Exam: alert, oriented x 3, cooperative, manager social media II-XII nml as tested, normal mood/affect, nml cerebellar function, nml station & gait, sensation nml Skin Exam: normal color, warm, dry Lymphatic Exam: adenopathy SpO2 Interpretation: hypoxic O2 Delivery: Room Air - Course Nursing assessment & vital signs reviewed: Yes EKG Interpreted by Me: RATE (93), Sinus Rhythm, Left [place] Deviation, NORMAL INTERVALS, NORMAL QRS, Non-specific ST Changes, Other ([place] EKG 01/11/2018 there are no significant changes.) Ordered Tests: Active Orders 24 hr Category Date Time Status EKG-ER Only STAT Care 07/29/20 15:07 Active IV Insertion STAT Care 07/29/20 15:07 Active Isolation, Initiate & Maintain STAT Care 07/29/20 15:07 Active Oxygen-ED Only Nasal Cannula 2 lpm Care 07/29/20 15:07 Active Pulse Oximetry (ED) ROUTINE Care 07/29/20 15:09 Active CHEST 1 VIEW (PORTABLE) Stat Exams 07/29/20 15:08 Completed CHEST WITH CONTRAST [CT] Stat Exams 07/29/20 16:11 Completed BLOOD CULTURE Stat Lab 07/29/20 15:15 Received CBC W DIFF Stat Lab 07/29/20 15:20 Completed CMP Stat Lab 07/29/20 15:20 Completed D-DIMER QUANTITATIVE Stat Lab 07/29/20 15:20 Completed Ferritin Stat Lab 07/29/20 15:20 Completed INFLUENZA A+B CHRISS Stat Lab 07/29/20 15:07 Completed LDH-LACTATE DEHYDROGENASE Stat Lab 07/29/20 15:20 Completed Lactic Acid Stat Lab 07/29/20 15:07 Completed Lactic Acid Stat Lab 07/29/20 17:20 Received [place] Screen Stat Lab 07/29/20 15:20 Completed TROPONIN Q3H Lab 07/29/20 17:30 Ordered TROPONIN Q3H Lab 07/29/20 20:30 Ordered TROPONIN Q3H Lab 07/29/20 23:30 Ordered UA W/RFX UR CULTURE Stat Lab 07/29/20 17:56 Ordered Medication Summary Generic Name Dose Route Start Last Admin Trade Name Ramez PRN Reason Stop Dose Admin Sodium Chloride 1,000 mls @ 100 mls/hr 07/29/20 15:15 07/29/20 15:22 Sodium Chloride 0.9% 1000 Ml IV 08/28/20 15:14 100 mls/hr .Q10H UMAIR Administration Discontinued Medications Generic Name Dose Route Start Last Admin Trade Name Ramez PRN Reason Stop Dose Admin Hydrocodone Bitart/Acetaminophen 15 ml 07/29/20 16:24 07/29/20 16:31 Hydrocodone-Acetamin 2.5-108/5 Ml Solution PO 07/29/20 16:25 15 ml STAT STA Administration Hydrocodone Bitart/Acetaminophen Confirm 07/29/20 16:28 Hydrocodone-Acetamin 2.5-108/5 Ml Solution Administered 07/29/20 16:29 Dose 15 ml .ROUTE .STK-MED ONE Dexamethasone Sodium Phosphate 6 mg 07/29/20 16:23 07/29/20 16:31 Decadron 4 Mg Inj IV 07/29/20 16:24 6 mg STAT ONE Administration Dexamethasone Sodium Phosphate Confirm 07/29/20 16:27 Decadron 4 Mg Inj Administered 07/29/20 16:28 Dose 8 mg .ROUTE .STK-MED ONE Remdesivir 200 mg/ Sodium 250 mls @ ud 07/29/20 18:00 Chloride IV 07/29/20 18:01 .STK-MED ONE Ondansetron HCl 4 mg 07/29/20 15:07 07/29/20 15:22 Zofran 4 Mg/2 Ml Vial IV 07/29/20 15:08 4 mg STAT STA Administration Ondansetron HCl Confirm 07/29/20 15:22 Zofran 4 Mg/2 Ml Vial Administered 07/29/20 15:23 Dose 4 mg .ROUTE .STK-MED ONE Lab/Rad Data: Laboratory Result Diagrams 07/29/20 15:20 07/29/20 15:20 Laboratory Results 07/29/20 07/29/20 07/29/20 Range/Units 15:20 15:20 15:20 WBC (4.0-10.5) K/mm3 RBC (4.1-5.4) M/mm3 Hgb (12.0-16.0) gm/dl Hct (35-47) % MCV (78-100) fl MCH (26-32) pg MCHC (32-36) g/dl RDW (11.5-14.0) % Plt Count (150-450) K/mm3 MPV (7.5-11.0) fl Gran % (36.0-66.0) % Eos # (Auto) (0-0.5) Absolute Lymphs (auto) (1.0-4.6) Absolute Monos (auto) (0.0-1.3) Lymphocytes % (24.0-44.0) % Monocytes % (0.0-12.0) % Eosinophils % (0.00-5.0) % Basophils % (0.0-0.4) % Absolute Granulocytes (1.4-6.9) Basophils # (0-0.4) D-Dimer 926 H* (215-500) ng/mL Sodium (137-145) mmol/L Potassium (3.5-5.1) mmol/L Chloride (98-107) mmol/L Carbon Dioxide (22-30) mmol/L Anion Gap (5-15) MEQ/L BUN (7-17) mg/dL Creatinine (0.52-1.04) mg/dL Estimated GFR ML/MIN Glucose (74-106) mg/dL Lactic Acid (0.4-2.0) Calcium (8.4-10.2) mg/dL Ferritin 1130 H (11.1-264) ng/mL Total Bilirubin (0.2-1.3) mg/dL AST (14-36) U/L ALT (0-35) U/L Alkaline Phosphatase (38-126) U/L Lactate Dehydrogenase (120-246) U/L Serum Total Protein (6.3-8.2) g/dL Albumin (3.5-5.0) g/dL Monoscreen NEGATIVE (Negative) Influenza Type A Ag (NEGATIVE) Influenza Type B Ag (NEGATIVE) Group A Strep Antibody (NEGATIVE) Slides for Path Review 07/29/20 07/29/20 07/29/20 Range/Units 15:20 15:20 15:07 WBC 4.9 (4.0-10.5) K/mm3 RBC 4.40 (4.1-5.4) M/mm3 Hgb 13.2 (12.0-16.0) gm/dl Hct 39.5 (35-47) % MCV 89.8 (78-100) fl MCH 30.0 (26-32) pg MCHC 33.4 (32-36) g/dl RDW 12.4 (11.5-14.0) % Plt Count 232 (150-450) K/mm3 MPV 9.7 (7.5-11.0) fl Gran % 89.2 H (36.0-66.0) % Eos # (Auto) 0 (0-0.5) Absolute Lymphs (auto) 0.47 L (1.0-4.6) Absolute Monos (auto) 0.06 (0.0-1.3) Lymphocytes % 9.6 L (24.0-44.0) % Monocytes % 1.2 (0.0-12.0) % Eosinophils % 0.0 (0.00-5.0) % Basophils % 0.0 (0.0-0.4) % Absolute Granulocytes 4.39 (1.4-6.9) Basophils # 0 (0-0.4) D-Dimer (215-500) ng/mL Sodium 133 L (137-145) mmol/L Potassium 3.4 L (3.5-5.1) mmol/L Chloride 95 L (98-107) mmol/L Carbon Dioxide 28 (22-30) mmol/L Anion Gap 13.7 (5-15) MEQ/L BUN 19 H (7-17) mg/dL Creatinine 0.76 (0.52-1.04) mg/dL Estimated GFR > 60.0 ML/MIN Glucose 126 H (74-106) mg/dL Lactic Acid (0.4-2.0) Calcium 9.3 (8.4-10.2) mg/dL Ferritin (11.1-264) ng/mL Total Bilirubin 1.10 (0.2-1.3) mg/dL AST 65 H (14-36) U/L ALT 32 (0-35) U/L Alkaline Phosphatase 301 H (38-126) U/L Lactate Dehydrogenase 447 H (120-246) U/L Serum Total Protein 7.5 (6.3-8.2) g/dL Albumin 3.6 (3.5-5.0) g/dL Monoscreen (Negative) Influenza Type A Ag (NEGATIVE) Influenza Type B Ag (NEGATIVE) Group A Strep Antibody NOT DETECTED (NEGATIVE) Slides for Path Review YES 07/29/20 07/29/20 Range/Units 15:07 15:07 WBC (4.0-10.5) K/mm3 RBC (4.1-5.4) M/mm3 Hgb (12.0-16.0) gm/dl Hct (35-47) % MCV (78-100) fl MCH (26-32) pg MCHC (32-36) g/dl RDW (11.5-14.0) % Plt Count (150-450) K/mm3 MPV (7.5-11.0) fl Gran % (36.0-66.0) % Eos # (Auto) (0-0.5) Absolute Lymphs (auto) (1.0-4.6) Absolute Monos (auto) (0.0-1.3) Lymphocytes % (24.0-44.0) % Monocytes % (0.0-12.0) % Eosinophils % (0.00-5.0) % Basophils % (0.0-0.4) % Absolute Granulocytes (1.4-6.9) Basophils # (0-0.4) D-Dimer (215-500) ng/mL Sodium (137-145) mmol/L Potassium (3.5-5.1) mmol/L Chloride (98-107) mmol/L Carbon Dioxide (22-30) mmol/L Anion Gap (5-15) MEQ/L BUN (7-17) mg/dL Creatinine (0.52-1.04) mg/dL Estimated GFR ML/MIN Glucose (74-106) mg/dL Lactic Acid 2.2 H (0.4-2.0) Calcium (8.4-10.2) mg/dL Ferritin (11.1-264) ng/mL Total Bilirubin (0.2-1.3) mg/dL AST (14-36) U/L ALT (0-35) U/L Alkaline Phosphatase (38-126) U/L Lactate Dehydrogenase (120-246) U/L Serum Total Protein (6.3-8.2) g/dL Albumin (3.5-5.0) g/dL Monoscreen (Negative) Influenza Type A Ag NEGATIVE (NEGATIVE) Influenza Type B Ag NEGATIVE (NEGATIVE) Group A Strep Antibody (NEGATIVE) Slides for Path Review - Progress Progress: improved, re-examined Air Movement: fair Progress Note: 07/29/20 17:18 Chest x-ray shows by basilar alveolar opacities. CAT scan of the chest with contrast shows negative pulmonary emboli. There is diffuse multifocal bilateral airspace disease. There is bilateral pleural effusions and right hilar lymphadenopathy both presumed reactive. 07/29/20 17:58 Medical decision making: This patient has COVID-19 pneumonia. Her symptoms are not improving. She was hypoxic upon arrival. She is feeling slightly better. She is requiring oxygen therapy. I spoke with Dr. Crawford about bringing her into the hospital. He agrees to admit her to the Covid unit. I reviewed the patient's history, condition, EKG findings, laboratory results. Blood Culture(s) Obtained: Yes Antibiotics given: No Counseled pt/family regarding: lab results, diagnosis, need for follow-up, rad results - Departure Referrals: DOCTOR,NO FAMILY [Primary Care Provider] -
[2020-07-29] MEDS ORDERED: Sodium Chloride 0.9% 1000 ML 1,000 ML IV SCH (15:15)
[2020-07-29] MEDS ORDERED: Sodium Chloride 0.9% 1000 ML 1,000 ML ONE (15:22)
[2020-07-29] MEDS ORDERED: Zofran 4 MG/2 ML VIAL ONE (15:22)
[2020-07-29 15:43] LABS: Absolute Neutrophil Ct (ANC) 4.39 (1.4-6.9); Basophil (Absolute #) 0 (0-0.4); Eosinophil (Absolute #) 0 (0-0.5); Hematocrit 39.5 % (35-47); Hemoglobin 13.2 gm/dl (12.0-16.0); Lymphocyte (Absolute #) 0.47 (1.0-4.6); Lymphocytes % 9.6 % (24.0-44.0); Mean Cell Volume 89.8 fl (78-100); Mean Corpuscular Hgb Concent. 33.4 g/dl (32-36); Mean Platelet Volume 9.7 fl (7.5-11.0); Monocyte (Absolute #) 0.06 (0.0-1.3); Monocytes % 1.2 % (0.0-12.0); Neutrophil % 89.2 % (36.0-66.0); Platelet Count 232 K/mm3 (150-450); Red Cell Distribution Width 12.4 % (11.5-14.0); White Blood Count 4.9 K/mm3 (4.0-10.5)
[2020-07-29 15:47] LABS: ALBUMIN 3.6 g/dL (3.5-5.0); ALKALINE PHOSPHATASE 301 U/L (38-126); ANION GAP 13.7 MEQ/L (5-15); BLOOD UREA NITROGEN 19 mg/dL (7-17); CHLORIDE 95 mmol/L (98-107); Calcium 9.3 mg/dL (8.4-10.2); Carbon Dioxide 28 mmol/L (22-30); Creatinine 1 0.76 mg/dL (0.52-1.04); EST GLOMERULAR FILTRATION RATE > 60.0 ML/MIN; Glucose 126 mg/dL (74-106); LDH-LACTATE DEHYDROGENASE 447 U/L (120-246); Potassium 3.4 mmol/L (3.5-5.1); SGOT/AST 65 U/L (14-36); SGPT/ALT 32 U/L (0-35); SODIUM 133 mmol/L (137-145); Total Protein 7.5 g/dL (6.3-8.2)
[2020-07-29 16:18] LABS: INFLUENZA A NEGATIVE (NEGATIVE); INFLUENZA B NEGATIVE (NEGATIVE)
[2020-07-29] MEDS ORDERED: Decadron 4 MG INJ IV ONE (16:23)
[2020-07-29] MEDS ORDERED: HYDROCODONE-ACETAMIN 2.5-108/5 ML SOLUTION PO STA (16:24)
[2020-07-29 16:25] LABS: Slide Review 1 YES
[2020-07-29] MEDS ORDERED: Decadron 4 MG INJ ONE (16:27)
[2020-07-29] MEDS ORDERED: HYDROCODONE-ACETAMIN 2.5-108/5 ML SOLUTION ONE (16:28)
--- NOTE | 2020-07-29 17:09 | XRAY ---
Indication: Fever and cough. Positive Covid 19. Comparison: January 11, 2018. Portable chest demonstrates new diffuse bilateral patchy airspace disease without consolidation/large effusion. Remaining heart and bony thorax unremarkable.
--- NOTE | 2020-07-29 17:09 | XRAY ---
Indication: Fever, cough, elevated d-dimer, and positive Covid 19. Multiple contiguous axial images obtained through the chest using 125 cc Isovue 370 contrast and PE protocol. Comparison: None There is good opacification of the pulmonary arteries to include the lobar and segmental branches. No pulmonary embolus. Heart is not enlarged. Aorta is normal in course and caliber. Prominent matted right perihilar lymphadenopathy, largest suprahilar measuring 3.1 x 2.0 cm. Small hiatal hernia. Lungs demonstrates moderate diffuse and bilateral patchy airspace disease. Small right and tiny left effusion presumed reactive. A few bilateral lower lobe calcified granulomas. Bony thorax intact. Limited upper abdomen unremarkable. Impression: 1. Negative pulmonary embolus. 2. Diffuse multifocal bilateral airspace disease. Also bilateral effusions and right hilar lymphadenopathy both presumed reactive. 3. Incidental small hiatal hernia and old granulomatous disease.
[2020-07-29] MEDS ORDERED: REMDESIVIR 200 MG in Sodium Chloride 0.9% 250 ML 250 ML IV ONE ×2 (18:00→19:59)
[2020-07-29 19:00] LABS: Appearance CLEAR (CLEAR); Bilirubin NEGATIVE (NEGATIVE); Blood SMALL Ery/ul (0-5); Epithelial Cells RARE /HPF (FEW); Glucose NEGATIVE (NEGATIVE); Ketones NEGATIVE (NEGATIVE); Leukocyte Esterase NEGATIVE (NEGATIVE); Mucus SLIGHT /HPF (NEGATIVE); Nitrite NEGATIVE (NEGATIVE); Protein,Urine Dip 30 (Negative); Urobilinogen 2 mg/dL (0-1)
[2020-07-29 19:06] LABS: WBC NONE SEEN /HPF (0-5)
[2020-07-29] MEDS ORDERED: TYLENOL 325 MG PO PRN (19:59)
[2020-07-29] MEDS ORDERED: Zofran 4 MG/2 ML VIAL IV PRN (19:59)
[2020-07-29] MEDS ORDERED: HYDROCODONE-ACETAMIN 2.5-108/5 ML SOLUTION PO PRN (19:59)
[2020-07-29] MEDS ORDERED: Ativan 1 MG PO PRN (21:40)
[2020-07-29] MEDS ORDERED: Sodium Chloride 0.9% 250 ML 0 ML IV ONE (21:52)
[2020-07-29] MEDS ORDERED: REMDESIVIR IV ONE (21:52)
[2020-07-29] MEDS ORDERED: Sodium Chloride 0.9% 250 ML 250 ML IV ONE (21:56)
[2020-07-29] MEDS: Sodium Chloride 0.9% 1000 ML 1,000 ML IV SCH (22:30)
[2020-07-29] MEDS: Lexapro 10 MG PO SCH (22:31)
[2020-07-29] MEDS: Tussionex Pennkinetic Susp PO PRN (22:31)
[2020-07-30] MEDS: Sodium Chloride 0.9% 1000 ML 1,000 ML IV SCH ×2 (01:27→12:01)
[2020-07-30] MEDS: Decadron 4 MG INJ IV SCH ×2 (04:26→16:17)
[2020-07-30 05:55] LABS: Absolute Neutrophil Ct (ANC) 5.21 (1.4-6.9); Basophil (Absolute #) 0 (0-0.4); Eosinophil % 0.2 % (0.00-5.0); Eosinophil (Absolute #) 0.01 (0-0.5); Hematocrit 37.9 % (35-47); Hemoglobin 12.4 gm/dl (12.0-16.0); Lymphocyte (Absolute #) 0.24 (1.0-4.6); Lymphocytes % 4.3 % (24.0-44.0); Mean Cell Volume 90.9 fl (78-100); Mean Corpuscular Hemoglobin 29.7 pg (26-32); Mean Corpuscular Hgb Concent. 32.7 g/dl (32-36); Mean Platelet Volume 9.2 fl (7.5-11.0); Monocytes % 1.8 % (0.0-12.0); Neutrophil % 93.7 % (36.0-66.0); Platelet Count 264 K/mm3 (150-450); Red Blood Count 4.17 M/mm3 (4.1-5.4); Red Cell Distribution Width 12.6 % (11.5-14.0); White Blood Count 5.6 K/mm3 (4.0-10.5)
[2020-07-30 06:09] LABS: ANION GAP 11.7 MEQ/L (5-15); BLOOD UREA NITROGEN 17 mg/dL (7-17); CHLORIDE 100 mmol/L (98-107); Calcium 8.9 mg/dL (8.4-10.2); Carbon Dioxide 29 mmol/L (22-30); Creatinine 1 0.73 mg/dL (0.52-1.04); EST GLOMERULAR FILTRATION RATE > 60.0 ML/MIN; Glucose 146 mg/dL (74-106); Potassium 4.1 mmol/L (3.5-5.1); SODIUM 136 mmol/L (137-145)
[2020-07-30 06:59] LABS: Slide Review 1 YES
[2020-07-30] MEDS ORDERED: NON-FORMULARY ITEM (Hydrocodone/Apap 5-325 Tab^^^ 1 TAB) PO PRN (08:39)
[2020-07-30] MEDS ORDERED: ZOFRAN ODT 4 MG PO PRN (08:39)
[2020-07-30] MEDS ORDERED: NORCO 5/325 MG PO PRN (08:47)
[2020-07-30] MEDS ORDERED: NON-FORMULARY ITEM (Aspirin [Aspirin] 81 MG) PO SCH (10:00)
[2020-07-30] MEDS ORDERED: Lexapro 10 MG PO SCH (10:00)
[2020-07-30] MEDS ORDERED: NON-FORMULARY ITEM (Lovastatin [Lovastatin] 40 MG) PO SCH (10:00)
[2020-07-30] MEDS ORDERED: Decadron 4 MG INJ IV SCH (10:00)
[2020-07-30] MEDS: Wellbutrin XL 150 MG PO SCH (10:03)
[2020-07-30] MEDS: ELIQUIS 2.5 MG TABLET PO SCH ×2 (10:03→21:06)
[2020-07-30] MEDS: Glucophage XR 500 MG PO SCH (10:03)
[2020-07-30] MEDS: ECOTRIN 81 MG PO SCH (10:03)
[2020-07-30] MEDS: Lexapro 10 MG PO SCH ×2 (10:03→21:06)
[2020-07-30] MEDS: Pepcid 20 MG PO SCH (11:13)
[2020-07-30] MEDS: REMDESIVIR 100 MG in Sodium Chloride 0.9% 100 ML IVPB 100 ML IV SCH (21:05)
[2020-07-30] MEDS: ZOCOR 20MG PO SCH (21:06)
[2020-07-31] MEDS: Tussionex Pennkinetic Susp PO PRN ×2 (00:20→17:43)
[2020-07-31] MEDS: Sodium Chloride 0.9% 1000 ML 1,000 ML IV SCH (04:08)
[2020-07-31] MEDS: Decadron 4 MG INJ IV SCH ×2 (04:52→17:43)
[2020-07-31 07:08] LABS: INR 1.67 (0.8-3.0)
[2020-07-31 07:14] LABS: ALBUMIN 3.3 g/dL (3.5-5.0); ALKALINE PHOSPHATASE 267 U/L (38-126); ANION GAP 12.3 MEQ/L (5-15); BLOOD UREA NITROGEN 21 mg/dL (7-17); CHLORIDE 103 mmol/L (98-107); Calcium 8.8 mg/dL (8.4-10.2); Carbon Dioxide 23 mmol/L (22-30); Creatinine 1 0.58 mg/dL (0.52-1.04); EST GLOMERULAR FILTRATION RATE > 60.0 ML/MIN; Glucose 148 mg/dL (74-106); SGOT/AST 64 U/L (14-36); SGPT/ALT 27 U/L (0-35); SODIUM 135 mmol/L (137-145); Total Protein 6.8 g/dL (6.3-8.2)
[2020-07-31] MEDS: ELIQUIS 2.5 MG TABLET PO SCH ×2 (10:10→21:34)
[2020-07-31] MEDS: Glucophage XR 500 MG PO SCH (10:10)
[2020-07-31] MEDS: ECOTRIN 81 MG PO SCH (10:10)
[2020-07-31] MEDS: Pepcid 20 MG PO SCH (10:11)
[2020-07-31] MEDS: Wellbutrin XL 150 MG PO SCH (10:11)
[2020-07-31] MEDS: Lexapro 10 MG PO SCH ×2 (10:27→21:34)
--- NOTE | 2020-07-31 10:40 | HP ---
CHIEF COMPLAINT: Cough, severe fatigue, myalgia, positive test for COVID. HISTORY OF PRESENT ILLNESS: The patient is a 60 year old white female who presented to the emergency room with increasing symptoms of severe fatigue, myalgia, chronic and frequent cough. She had fever earlier in the week. She works at the [employer] where she has been exposed to people with COVID and became positive about three days ago. She has risk factors of diabetes mellitus and her age. She is a nonsmoker. TRAVEL RISK: No international travel. CORONAVIRUS SCREENING: Positive COVID-19 patients probably yes in the practice. COVID test was positive on 07/26/2020. She has been home since then. MEDICATIONS: Eliquis 2.5 b.i.d. started earlier for COVID, aspirin 81 q.d. has been taking routinely, Wellbutrin 150 mg for depression one twice a day, Lexapro 10 mg daily and 5 at bedtime, Vicodin 5 mg every six hours PRN headaches, lovastatin 40 h.s., Metformin XL 500 daily, Zofran PRN nausea. ALLERGIES: DEMEROL. SULFA. PAST MEDICAL HISTORY: Depression. Diabetes mellitus type II. Endometriosis. Gastroesophageal reflux disease. PAST SURGICAL HISTORY: Apparently had a heart cath at one time that I believe was normal. section x2. Tubal ligation. Laparoscopic surgery for endometriosis. Cholecystectomy. Appendectomy. REVIEW OF SYSTEMS: HEENT: No problems hearing or seeing. Stopped up nose. CHEST: Kind of achiness. No pain on inspiration. CVS: No symptoms of chest heaviness or exertional pain or heart attacks or diagnosed with angina, hypertension. No exertional chest pain, palpitations, hypertension, coronary artery disease. CONSTITUTIONAL: She has had fever in the initial couple of days, cough and increasing shortness of breath recently, headaches, body aches and fatigue. ABDOMEN: No nausea or vomiting. MUSCULOSKELETAL: Aching all over quite severe recently, diffuse pain. SKIN: No problems. NEUROLOGIC: Had a headache since this started. : No problems. SOCIAL HISTORY: Nonsmoker. 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 PHYSICAL EXAMINATION: GENERAL APPEARANCE: Acutely ill, mild distress, alert, a little bit anxious. VITAL SIGNS: Temperature 98F, pulse 80, respirations 20, blood pressure 130/70. Saturation on room air 90%. Pain intensity 0. HEENT: Pupils equal and reactive to light. No problems hearing or seeing. She has some dry mouth. CHEST: Coughing has gotten worse she states over the last day. No chest wall tenderness. CVS: Apparently had a heart cath at one point which was normal. She is on no cardiac drugs except for cholesterol inhibitor. No murmurs or gallops. ABDOMEN: Soft. No tenderness or organomegaly. BACK: Minimal tenderness. No CVA tenderness. NEUROLOGIC: Alert, orientated. Cranial nerves are normal. LAB DATA AND TESTS: The patient's COVID test was positive. D-dimer was elevated to about a 1,000. Sodium was minimally low at 133, potassium 3.4 secondary to medications. White count 4.9, hemoglobin 13.2. Ferritin was high secondary to disease COVID probably. The ferritin was 1,130. IMPRESSION: The patient has malaise, shortness of breath, fatigue, aching secondary to COVID now in its fourth or fifth day. PLAN: The patient will be anticoagulated which has already been done at home. Placed on Remdesivir, Decadron, Tussionex, Ativan for sleep if needed. PROGNOSIS: Considered fair. Follow closely.
[2020-07-31] MEDS: REMDESIVIR 100 MG in Sodium Chloride 0.9% 100 ML IVPB 100 ML IV SCH (21:34)
[2020-07-31] MEDS: ZOCOR 20MG PO SCH (21:35)
[2020-08-01] MEDS: Decadron 4 MG INJ IV SCH ×2 (05:28→16:19)
[2020-08-01 05:41] LABS: Hematocrit 36.5 % (35-47); Hemoglobin 12.2 gm/dl (12.0-16.0); Mean Cell Volume 91.9 fl (78-100); Mean Corpuscular Hemoglobin 30.7 pg (26-32); Mean Corpuscular Hgb Concent. 33.4 g/dl (32-36); Platelet Count 332 K/mm3 (150-450); Red Blood Count 3.97 M/mm3 (4.1-5.4); Red Cell Distribution Width 12.5 % (11.5-14.0); White Blood Count 6.3 K/mm3 (4.0-10.5)
[2020-08-01 05:52] LABS: INR 1.83 (0.8-3.0); PROTIME 20.8 SECONDS (9.95-12.35)
[2020-08-01 05:55] LABS: ALBUMIN 2.7 g/dL (3.5-5.0); ALKALINE PHOSPHATASE 239 U/L (38-126); BLOOD UREA NITROGEN 19 mg/dL (7-17); CHLORIDE 98 mmol/L (98-107); Calcium 8.4 mg/dL (8.4-10.2); Carbon Dioxide 29 mmol/L (22-30); Creatinine 1 0.61 mg/dL (0.52-1.04); EST GLOMERULAR FILTRATION RATE > 60.0 ML/MIN; Glucose 157 mg/dL (74-106); Potassium 3.7 mmol/L (3.5-5.1); SGOT/AST 53 U/L (14-36); SGPT/ALT 24 U/L (0-35); SODIUM 134 mmol/L (137-145); Total Protein 5.7 g/dL (6.3-8.2)
[2020-08-01] MEDS: Wellbutrin XL 150 MG PO SCH (10:16)
[2020-08-01] MEDS: Pepcid 20 MG PO SCH (10:16)
[2020-08-01] MEDS: Glucophage XR 500 MG PO SCH (10:17)
[2020-08-01] MEDS: ELIQUIS 2.5 MG TABLET PO SCH ×2 (10:17→22:12)
[2020-08-01] MEDS: ECOTRIN 81 MG PO SCH (10:18)
[2020-08-01] MEDS: Lexapro 10 MG PO SCH ×2 (10:18→22:12)
[2020-08-01] MEDS ORDERED: Tessalon Perles 100 MG PO PRN (11:02)
[2020-08-01] MEDS: REMDESIVIR 100 MG in Sodium Chloride 0.9% 100 ML IVPB 100 ML IV SCH (22:11)
[2020-08-01] MEDS: ZOCOR 20MG PO SCH (22:13)
[2020-08-01] MEDS: Sodium Chloride 0.9% 1000 ML 1,000 ML IV SCH ×2 (23:52→23:53)
[2020-08-02] MEDS: Sodium Chloride 0.9% 1000 ML 1,000 ML IV SCH (05:22)
[2020-08-02] MEDS: Decadron 4 MG INJ IV SCH (05:45)
[2020-08-02 06:54] LABS: ALBUMIN 2.8 g/dL (3.5-5.0); ALKALINE PHOSPHATASE 199 U/L (38-126); ANION GAP 6.7 MEQ/L (5-15); BLOOD UREA NITROGEN 22 mg/dL (7-17); CHLORIDE 105 mmol/L (98-107); Calcium 8.4 mg/dL (8.4-10.2); Carbon Dioxide 29 mmol/L (22-30); Creatinine 1 0.53 mg/dL (0.52-1.04); EST GLOMERULAR FILTRATION RATE > 60.0 ML/MIN; Glucose 157 mg/dL (74-106); Potassium 3.8 mmol/L (3.5-5.1); SGOT/AST 45 U/L (14-36); SGPT/ALT 23 U/L (0-35); SODIUM 137 mmol/L (137-145); Total Protein 5.9 g/dL (6.3-8.2)
[2020-08-02 06:55] LABS: INR 1.66 (0.8-3.0); PROTIME 18.8 SECONDS (9.95-12.35)
[2020-08-02] MEDS: Glucophage XR 500 MG PO SCH (09:22)
[2020-08-02] MEDS: ECOTRIN 81 MG PO SCH (09:22)
[2020-08-02] MEDS: Pepcid 20 MG PO SCH (09:23)
[2020-08-02] MEDS: Wellbutrin XL 150 MG PO SCH (09:23)
[2020-08-02] MEDS: Lexapro 10 MG PO SCH (09:23)
[2020-08-02] MEDS: ELIQUIS 2.5 MG TABLET PO SCH (09:23)
[2020-08-02 11:44] VITALS: BP 128/72; O2SAT 90
[2020-08-02 12:58] VITALS: PULSE 66
--- NOTE | 2020-08-03 11:18 | PROG NOTE ---
DATE: 08/01/2020 HISTORY: The patient today looks much better. She has good color. She is happy. She can walk to the bathroom without any help. She has got some appetite back after not eating for weeks. We bumped her oxygen up to 4 liters at night because she got down to 88 and presently it is 95 as she is lying in bed talking to me at 1000 hours in the morning. She states she feels well and wants to go home. Her D-dimer is relatively high. She has diabetes mellitus and really is not eating well. She has not ambulated that much. Her O2 does go down at night. I think it would be better if we finish the Remdesivir and take advantage of that to see if she will not eat a little bit better for us and reconsider trying to discharge tomorrow with risk factors of her being slightly obese, diabetes mellitus and being over 60 it seems to be adequate and discussed it with her son who is working in the COVID unit and her is in the pharmacy here and they are on board.
--- NOTE | 2020-08-05 12:33 | DS ---
DISCHARGE DIAGNOSES: 1) COVID. 2) COVID PNEUMONIA. 3) OBESITY. 4) DIABETES MELLITUS. 5) HYPERLIPIDEMIA. HISTORY: She had been home several days but she could not get her breath. Her saturation was 90% on room air but when she would walk it would drop down into the 80's. She had no chest pain, no nausea or vomiting. She could not eat, was coughing a lot and felt horrible, severe achiness. She had been on aspirin, Wellbutrin, Lovastatin, Eliquis 2.5 that I just started for the COVID, Lexapro 10 mg at bedtime, Vicodin 5 every six hours PRN, Metformin 500 q.d. Currently, no one at home has it. However multiple people at the [facility] where she works has had it. Chest x-ray kind of showed bilateral infiltrates typical for COVID. Her D-dimer was elevated to about 800 and has come to I think 600 yesterday and 500 today. HOSPITAL COURSE: She was started on Remdesivir 200 and 100 received four doses, Decadron 4 mg b.i.d., Zofran. She really felt bad for the first several days and then on 08/01/2020 she started feeling much better. Her oxygen was stable on 4 liters. There was minimal elevation of alkaline phosphatase probably related to COVID. She has no reason to have liver disease at this time. On the day of discharge she was much more happy, perky, breathing easy and felt to be safe to send home on oxygen 4 liters and wean it off, anticoagulation with Eliquis 2.5 b.i.d. and prednisone 20 x5, 10 x5 and may increase if feels worse and her home medications. PROGNOSIS: Fair.
== END 2020-08-02 13:15 | disposition home or self-care (01) | DRG 177 ==
LOC: ED 14:56 → MED SURG 19:52
PROVIDERS: ADMIT Family Medicine; ATTEND Family Medicine
DX: U07.1 COVID-19 (principal); J12.89 Other viral pneumonia; E11.9 Type 2 diabetes mellitus without complications; Z79.01 Long term (current) use of anticoagulants; Z79.899 Other long term (current) drug therapy; R79.1 Abnormal coagulation profile; R53.81 Other malaise; R06.02 Shortness of breath; M79.10 Myalgia, unspecified site
CPT/HCPCS: 36000; 36415; 71045; 71260; 80048; 80053; 81001; 82728; 83605; 83615; 84484; 85025; 85027; 85379; 85610; 86308; 87040; 87077; 87086; 87186; 87400; 87651; 93005; 94760; 94762; 96360; 96361; 96374; 96375; 99285; J1100; J2405; A9270-GY

== ENCOUNTER 2021-02-11 17:18 | Emergency (ER) | payer OTHER ==
[2021-02-11] MEDS ORDERED: Sodium Chloride 0.9% 1000 ML 1,000 ML IV STA (17:50)
[2021-02-11] MEDS ORDERED: TORAdol 30 mg Injection IV ONE (17:54)
[2021-02-11] MEDS ORDERED: TORAdol 30 mg Injection ONE (17:57)
[2021-02-11] MEDS ORDERED: Sodium Chloride 0.9% 1000 ML 1,000 ML ONE (17:57)
[2021-02-11 18:17] LABS: Absolute Neutrophil Ct (ANC) 5.17 (1.4-6.9); BASOPHIL % 0.4 % (0.0-0.4); Basophil (Absolute #) 0.03 (0-0.4); Eosinophil % 2.8 % (0.00-5.0); Hematocrit 37.3 % (35-47); Hemoglobin 12.3 gm/dl (12.0-16.0); Lymphocytes % 18.2 % (24.0-44.0); Mean Cell Volume 91.6 fl (78-100); Mean Corpuscular Hemoglobin 30.2 pg (26-32); Mean Platelet Volume 10.5 fl (7.5-11.0); Monocyte (Absolute #) 0.43 (0.0-1.3); Neutrophil % 72.6 % (36.0-66.0); Platelet Count 224 K/mm3 (150-450); Red Blood Count 4.07 M/mm3 (4.1-5.4); Red Cell Distribution Width 13.1 % (11.5-14.0); White Blood Count 7.1 K/mm3 (4.0-10.5)
--- NOTE | 2021-02-11 18:21 | ERPHSYRPT ---
- History of Present Illness Time Seen by Provider: 02/11/21 17:30 Source: patient Exam Limitations: no limitations Patient Subjective Stated Complaint: Pt began having left flank pain at approx 1530 and the pain has increased since and then began vomiting Triage Nursing Assessment: Pt brought to the ER by her , hypertensive, bradycardic, rates left flank pain as 10/10, denies any abdominal pain, N&V, no hx of kidney stones Physician History: Patient is a 60-year-old female presents to our emergency department for evaluation of left flank pain. Pain started approximately 3:30 PM. Patient was at work. Pain is gotten progressively worse. Patient vomited once. She also feels short of breath. Patient concern for PE. Patient has no history of kidney stones. Patient rates pain 10 out of 10. No trauma. No fever. No diarrhea. No rash. Patient denies hematuria urinary symptomology. Patient voices no other complaints or concerns at this time. Timing/Duration: today Severity: moderate, severe Modifying Factors: Improves With: nothing Associated Symptoms: nausea, vomiting, shortness of breath, No diaphoresis, No fever, No loss of appetite, No malaise, No syncope Allergies/Adverse Reactions: meperidine HCl [From Demerol] Allergy (Verified 02/11/21 17:29) Nausea and Vomiting Sulfa (Sulfonamide Antibiotics) Allergy (Verified 02/11/21 17:29) Swelling Home Medications: Aspirin 81 mg PO DAILY 04/10/14 [History] Bupropion HCl Xl 150 mg [Wellbutrin XL 150 MG] 150 mg PO DAILY 01/11/18 [History] Lovastatin 40 mg PO DAILY 01/11/18 [History] Escitalopram Oxalate 10 mg [Lexapro 10 MG] 10 mg PO BID 07/29/20 [History] Metformin HCl Xr 500 mg [Glucophage XR 500 MG] 500 mg PO DAILY 07/29/20 [History] Hx Tetanus, Diphtheria Vaccination/Date Given: Yes Hx Influenza Vaccination/Date Given: Yes Hx Pneumococcal Vaccination/Date Given: No Travel Risk - International Travel Have you traveled outside of the country in past 3 weeks: No - Coronavirus Screening Are you exhibiting any of the following symptoms?: No Close contact with a COVID-19 positive Pt in past 14-21 Days: No - Vaccine Status Have you recieved a Covid-19 vaccination: Yes Hairspring Inspector: Moderna - Vaccination Dates Date of 2cond Vaccination (if applicable): didn't get - Review of Systems Constitutional: No Symptoms, No Fever, No Chills Eyes: No Symptoms Ears, Nose, & Throat: No Symptoms Respiratory: No Symptoms, No Cough, No Dyspnea Cardiac: No Symptoms, No Chest Pain, No Edema, No Syncope Abdominal/Gastrointestinal: No Symptoms, No Abdominal Pain, No Nausea, No Vomiting, No Diarrhea Genitourinary Symptoms: No Symptoms, No Dysuria Musculoskeletal: No Symptoms, No Back Pain, No Neck Pain Skin: No Symptoms, No Rash Neurological: No Symptoms, No Dizziness, No Focal Weakness, No Sensory Changes Psychological: No Symptoms Endocrine: No Symptoms Hematologic/Lymphatic: No Symptoms Immunological/Allergic: No Symptoms All Other Systems: Reviewed and Negative - Past Medical History Pertinent Past Medical History: Yes Neurological History: No Pertinent History ENT History: No Pertinent History Cardiac History: No Pertinent History Respiratory History: No Pertinent History Endocrine Medical History: Diabetes Type II Musculoskeletal History: No Pertinent History GI Medical History: GERD, Gallbladder Disease History: No Pertinent History Psycho-Social History: Depression Female Reproductive Disorders: Endometriosis, Fibroids - Past Surgical History Past Surgical History: Yes Neuro Surgical History: No Pertinent History Cardiac: Cardiac Catheterization Respiratory: No Pertinent History Gastrointestinal: Appendectomy, Cholecystectomy Genitourinary: No Pertinent History Musculoskeletal: No Pertinent History Female Surgical History: Section, Tubal Ligation, Other Other Surgical History: expl.lap for endometriosis with removal of endo.,c- section x two, colonoscopy,egd - Social History Smoking Status: Never smoker Exposure to second hand smoke: No Drug Use: none Patient Lives Alone: No - Female History Hx Now: No - Nursing Vital Signs Nursing Vital Signs: Initial Vital Signs Temperature 97.5 F 02/11/21 17:20 Pulse Rate 53 L 02/11/21 17:20 Blood Pressure 160/88 02/11/21 17:20 O2 Sat by Pulse Oximetry 100 02/11/21 17:20 Pain Scale Pain Intensity 5 - Physical Exam General Appearance: no apparent distress, alert Eye Exam: PERRL/EOMI, eyes nml inspection Ears, Nose, Throat Exam: normal ENT inspection, TMs normal, pharynx normal, moist mucous membranes Neck Exam: normal inspection, non-tender, supple, full range of motion Respiratory Exam: normal breath sounds, lungs clear, airway intact, No respiratory distress Cardiovascular Exam: regular rate/rhythm, normal heart sounds, normal peripheral pulses Gastrointestinal/Abdomen Exam: soft, normal bowel sounds, other (Left-sided CVA tenderness. Mild flank pain. Abdominal exam otherwise benign.), No tenderness, No mass Pelvic Exam: not done Back Exam: normal inspection, normal range of motion, No CVA tenderness, No vertebral tenderness Extremity Exam: normal inspection, normal range of motion, pelvis stable Neurologic Exam: alert, oriented x 3, cooperative, normal mood/affect, sensation nml, No motor deficits Skin Exam: normal color, warm, dry, No rash Lymphatic Exam: No adenopathy SpO2 Interpretation: normal SpO2: 100 O2 Delivery: Room Air - Course Nursing assessment & vital signs reviewed: Yes - CT Exams Abdomen/Pelvis CT Interpretation: Tele-radiologist Report (Compared to 01/12/2018, new midline punctate urinary bladder stone and 2 mm nonobstructing left renal stone. Remaining AP negative.) Chest CT Interpretation: Tele-radiologist Report (08/20/2020, continued negative PE. Mild bilateral dependent atelectasis. 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 Care 02/11/21 17:52 Active IV Insertion STAT Care 02/11/21 17:50 Active Pulse Oximetry (ED) STAT Care 02/11/21 17:50 Active ABDOMEN AND PELVIS W/0 CONTRAS [CT] Stat Exams 02/11/21 17:53 Taken CHEST WITH CONTRAST [CT] Stat Exams 02/11/21 17:51 Taken CBC W DIFF Stat Lab 02/11/21 17:45 Completed CMP Stat Lab 02/11/21 17:45 Completed CULTURE,URINE Stat Lab 02/11/21 18:48 Received LIPASE Stat Lab 02/11/21 17:45 Completed TROPONIN Q3H Lab 02/11/21 17:45 Completed TROPONIN Q3H Lab 02/11/21 21:08 Received TROPONIN Q3H Lab 02/12/21 00:00 Ordered TROPONIN Q3H Lab 02/12/21 03:00 Ordered TROPONIN Q3H Lab 02/12/21 06:00 Ordered UA W/RFX UR CULTURE Stat Lab 02/11/21 18:48 Completed Medication Summary Discontinued Medications Generic Name Dose Route Start Last Admin Trade Name Ramez PRN Reason Stop Dose Admin Sodium Chloride 1,000 mls @ 999 mls/hr 02/11/21 17:50 02/11/21 18:00 Sodium Chloride 0.9% 1000 Ml IV 02/11/21 18:50 999 mls/hr .Q1H1M STA Administration Sodium Chloride Confirm 02/11/21 17:57 Sodium Chloride 0.9% 1000 Ml Administered 02/11/21 17:58 Dose 1,000 mls @ ud .ROUTE .STK-MED ONE Ceftriaxone Sodium/Dextrose 2 g in 50 mls @ 100 mls/hr 02/11/21 21:43 02/11/21 21:49 Rocephin 2 Gm-D5w 50ml Bag IV 02/11/21 22:12 100 ml/hr STAT STA 100 mls/hr Administration Ceftriaxone Sodium/Dextrose Confirm 02/11/21 21:46 Rocephin 2 Gm-D5w 50ml Bag Administered 02/11/21 21:47 Dose 2 g in 50 mls @ ud IV .STK-MED ONE Ketorolac Tromethamine 30 mg 02/11/21 17:54 02/11/21 18:05 Toradol 30 Mg Injection IV 02/11/21 17:55 30 mg STAT ONE Administration Ketorolac Tromethamine Confirm 02/11/21 17:57 Toradol 30 Mg Injection Administered 02/11/21 17:58 Dose 30 mg .ROUTE .STK-MED ONE Morphine Sulfate 2 mg 02/11/21 20:37 02/11/21 20:40 Morphine Sulfate 2 Mg Inj IV 02/11/21 20:38 2 mg STAT ONE Administration Morphine Sulfate Confirm 02/11/21 20:39 Morphine Sulfate 2 Mg Inj Administered 02/11/21 20:40 Dose 2 mg .ROUTE .STK-MED ONE Lab/Rad Data: Laboratory Result Diagrams 02/11/21 17:45 02/11/21 17:45 Laboratory Results 02/11/21 02/11/21 02/11/21 Range/Units 18:48 17:45 17:45 WBC (4.0-10.5) K/mm3 RBC (4.1-5.4) M/mm3 Hgb (12.0-16.0) gm/dl Hct (35-47) % MCV (78-100) fl MCH (26-32) pg MCHC (32-36) g/dl RDW (11.5-14.0) % Plt Count (150-450) K/mm3 MPV (7.5-11.0) fl Gran % (36.0-66.0) % Eos # (Auto) (0-0.5) Absolute Lymphs (auto) (1.0-4.6) Absolute Monos (auto) (0.0-1.3) Lymphocytes % (24.0-44.0) % Monocytes % (0.0-12.0) % Eosinophils % (0.00-5.0) % Basophils % (0.0-0.4) % Absolute Granulocytes (1.4-6.9) Basophils # (0-0.4) Sodium 139 (137-145) mmol/L Potassium 3.6 (3.5-5.1) mmol/L Chloride 106 (98-107) mmol/L Carbon Dioxide 27 (22-30) mmol/L Anion Gap 9.8 (5-15) MEQ/L BUN 19 H (7-17) mg/dL Creatinine 0.74 (0.52-1.04) mg/dL Estimated GFR > 60.0 ML/MIN Glucose 104 (74-106) mg/dL Calcium 8.9 (8.4-10.2) mg/dL Total Bilirubin 1.90 H (0.2-1.3) mg/dL AST 20 (14-36) U/L ALT 10 (0-35) U/L Alkaline Phosphatase 111 (38-126) U/L Troponin I < 0.012 (0.000-0.034) ng/mL Serum Total Protein 6.2 L (6.3-8.2) g/dL Albumin 3.8 (3.5-5.0) g/dL Lipase 129 (23-300) U/L Urine Color YELLOW (YELLOW) Urine Appearance TURBID (CLEAR) Urine pH 5.0 (5-6) Ur Specific Moodus 1.033 (1.005-1.025) Urine Protein 100 (Negative) Urine Ketones TRACE (NEGATIVE) Urine Blood MODERATE (0-5) Flaco/ul Urine Nitrite NEGATIVE (NEGATIVE) Urine Bilirubin NEGATIVE (NEGATIVE) Urine Urobilinogen NEGATIVE (0-1) mg/dL Ur Leukocyte Esterase NEGATIVE (NEGATIVE) Urine WBC (Auto) 26-50 (0-5) /HPF Urine RBC (Auto) 51-100 (0-2) /HPF U Epithel Cells (Auto) RARE (FEW) /HPF Urine Bacteria (Auto) MANY (NEGATIVE) /HPF Urine Mucus (Auto) MANY (NEGATIVE) /HPF Urine Culture Reflexed YES (NO) Urine Glucose NEGATIVE (NEGATIVE) mg/dL 02/11/21 Range/Units 17:45 WBC 7.1 (4.0-10.5) K/mm3 RBC 4.07 L (4.1-5.4) M/mm3 Hgb 12.3 (12.0-16.0) gm/dl Hct 37.3 (35-47) % MCV 91.6 (78-100) fl MCH 30.2 (26-32) pg MCHC 33.0 (32-36) g/dl RDW 13.1 (11.5-14.0) % Plt Count 224 (150-450) K/mm3 MPV 10.5 (7.5-11.0) fl Gran % 72.6 H (36.0-66.0) % Eos # (Auto) 0.20 (0-0.5) Absolute Lymphs (auto) 1.30 (1.0-4.6) Absolute Monos (auto) 0.43 (0.0-1.3) Lymphocytes % 18.2 L (24.0-44.0) % Monocytes % 6.0 (0.0-12.0) % Eosinophils % 2.8 (0.00-5.0) % Basophils % 0.4 (0.0-0.4) % Absolute Granulocytes 5.17 (1.4-6.9) Basophils # 0.03 (0-0.4) Sodium (137-145) mmol/L Potassium (3.5-5.1) mmol/L Chloride (98-107) mmol/L Carbon Dioxide (22-30) mmol/L Anion Gap (5-15) MEQ/L BUN (7-17) mg/dL Creatinine (0.52-1.04) mg/dL Estimated GFR ML/MIN Glucose (74-106) mg/dL Calcium (8.4-10.2) mg/dL Total Bilirubin (0.2-1.3) mg/dL AST (14-36) U/L ALT (0-35) U/L Alkaline Phosphatase (38-126) U/L Troponin I (0.000-0.034) ng/mL Serum Total Protein (6.3-8.2) g/dL Albumin (3.5-5.0) g/dL Lipase (23-300) U/L Urine Color (YELLOW) Urine Appearance (CLEAR) Urine pH (5-6) Ur Specific Moodus (1.005-1.025) Urine Protein (Negative) Urine Ketones (NEGATIVE) Urine Blood (0-5) Flaco/ul Urine Nitrite (NEGATIVE) Urine Bilirubin (NEGATIVE) Urine Urobilinogen (0-1) mg/dL Ur Leukocyte Esterase (NEGATIVE) Urine WBC (Auto) (0-5) /HPF Urine RBC (Auto) (0-2) /HPF U Epithel Cells (Auto) (FEW) /HPF Urine Bacteria (Auto) (NEGATIVE) /HPF Urine Mucus (Auto) (NEGATIVE) /HPF Urine Culture Reflexed (NO) Urine Glucose (NEGATIVE) mg/dL - Progress Progress: improved Progress Note: Patient reassessed. Pain improved. CT negative for PE. There is a stone in urinary bladder. It appears that patient may have passed urinary stone. Pyuria observed on urinalysis along with hematuria. We will treat for urinary tract infection. Patient received a 1 g dose of ceftriaxone in our ED. A prescription for Keflex was forwarded to patient's pharmacy. Patient was discharged home with 4 Marion pills. Patient will follow up with primary care doctor within 48 hours for evaluation. 02/11/21 22:14 Counseled pt/family regarding: lab results, diagnosis, need for follow-up, rad results - Departure Departure Disposition: Home Clinical Impression: Urinary bladder stone, Nephrolithiasis, Urinary tract infection, Hiatal hernia, Hilar lymph nodes, Hematuria Condition: Stable Critical Care Time: No Referrals: ACACIA JAFFE [Primary Care Provider] - Additional Instructions: Discharge/Care Plan MONICA LESTER TONIA was seen on 02/11/21 in the Emergency Room. The patient was counseled regarding Diagnosis,Lab results, Imaging studies, need for follow up and when to return to the Emergency Room. Prescriptions given: Discharge Note I have spoken with the patient and/or caregivers. I have explained the patient's condition, diagnosis and treatment plan based on the information available to me at this time. I have answered the patient's and/or caregiver's questions and addressed any concerns. The patient and/or caregivers have as good understanding of the patient's diagnosis, condition and treatment plan as can be expected at this point. The vital signs have been stable. The patient's condition is stable and appropriate for discharge from the emergency department. The patient will pursue further outpatient evaluation with the primary care physician or other designated or consulting physician as outlined in the discharge instructions. The patient and/or caregivers are agreeable to this plan of care and follow-up instructions have been explained in detail. The patient and/or caregivers have received these instruction. The patient/and or caregivers are aware that any significant change in condition or worsening of symptoms should prompt an immediate return to this or the closest emergency department or call 911. Prescriptions: Cephalexin Mh 500 mg [Keflex 500 mg] 500 mg PO QID 5 Days #20 capsule
[2021-02-11 19:14] LABS: ALBUMIN 3.8 g/dL (3.5-5.0); ALKALINE PHOSPHATASE 111 U/L (38-126); ANION GAP 9.8 MEQ/L (5-15); BLOOD UREA NITROGEN 19 mg/dL (7-17); CHLORIDE 106 mmol/L (98-107); Calcium 8.9 mg/dL (8.4-10.2); Carbon Dioxide 27 mmol/L (22-30); Creatinine 1 0.74 mg/dL (0.52-1.04); EST GLOMERULAR FILTRATION RATE > 60.0 ML/MIN; Glucose 104 mg/dL (74-106); LIPASE 129 U/L (23-300); Potassium 3.6 mmol/L (3.5-5.1); SGOT/AST 20 U/L (14-36); SGPT/ALT 10 U/L (0-35); SODIUM 139 mmol/L (137-145); Total Protein 6.2 g/dL (6.3-8.2)
[2021-02-11 19:18] LABS: Appearance TURBID (CLEAR); Bacteria MANY /HPF (NEGATIVE); Bilirubin NEGATIVE (NEGATIVE); Blood MODERATE Ery/ul (0-5); Epithelial Cells RARE /HPF (FEW); Glucose NEGATIVE (NEGATIVE); Ketones TRACE (NEGATIVE); Leukocyte Esterase NEGATIVE (NEGATIVE); Mucus MANY /HPF (NEGATIVE); Nitrite NEGATIVE (NEGATIVE); Protein,Urine Dip 100 (Negative); RBC 51-100 /HPF (0-2); Specific Gravity 1.033 (1.005-1.025); Urobilinogen NEGATIVE mg/dL (0-1); WBC 26-50 /HPF (0-5)
[2021-02-11] MEDS ORDERED: MORPHINE SULFATE 2 MG INJ IV ONE (20:37)
[2021-02-11] MEDS ORDERED: MORPHINE SULFATE 2 MG INJ ONE (20:39)
[2021-02-11] MEDS ORDERED: ROCEPHIN 2 Gm-D5w 50ML BAG** 2 G/50 ML IVPB IV STA (21:43)
[2021-02-11] MEDS ORDERED: ROCEPHIN 2 Gm-D5w 50ML BAG** 2 G/50 ML IVPB IV ONE (21:46)
[2021-02-11 21:52] VITALS: O2SAT 100
[2021-02-11] MEDS ORDERED: NORCO 5/325 MG PO ONE (22:14)
[2021-02-11 22:28] VITALS: BP 133/53; PULSE 55
[2021-02-11] MEDS ORDERED: NORCO 5/325 MG ONE (22:30)
--- NOTE | 2021-02-13 14:29 | XRAY ---
Exam: CT of the abdomen and pelvis without IV contrast from 02/11/2021. CTDI: 6.77 mGy Comparison: CT of the abdomen and pelvis without IV contrast from 01/12/2018. Indication: 60-year-old female with left flank pain; patient had Covid-19 in July,. She has a history of prior partial hysterectomy, cholecystectomy, and appendectomy. Technique: Non-IV contrast axial images were obtained through the abdomen and pelvis. Reconstructed coronal and sagittal images were created and reviewed. Findings: The lung bases reveal a benign calcified granuloma at each lung base. Minimal pleural thickening/scarring is seen at the posterior left lung base. There appears be a small hiatal hernia. The kidneys are remarkable for a 2.5 mm nonobstructing stone within the middle third of the left kidney. No other renal calculi are seen. The kidneys appear of average size and shape. Small bilateral extrarenal pelves are seen. There is no hydronephrosis. The ureters appear of normal diameter and reveal no ureteral stone. However, I do identify a tiny punctate stone layering within the posterior aspect of the urinary bladder in the midline on axial image #115. Perhaps this stone was recently passed. Assessment of the solid organs is somewhat limited without IV contrast. However, the liver, spleen, pancreas, and adrenal glands appear unremarkable. Surgical clips within the subhepatic space are seen consistent with prior cholecystectomy. I see no evidence of abdominal aortic aneurysm or abnormal retroperitoneal lymphadenopathy. There is no free intraperitoneal air or ventral abdominal wall hernia. However, I do see a small stable fat containing umbilical hernia. Scattered surgical clips are again seen within the right lower quadrant and upper posterior midline pelvis. I do not see the appendix consistent with patient's history of prior appendectomy. The uterus is also surgically absent. The bowel is not distended. Some scattered stool is seen throughout the colon. The remainder of the pelvis reveals no suspicious mass, abnormal lymphadenopathy, or free intraperitoneal fluid. The skeleton reveals no acute fracture or aggressive bone lesion. There is slight convexity of the upper lumbar spine toward the right representing no change. I see mild degenerative disc disease at L4-L5 which has mildly progressed with evidence of some new vacuum disc phenomena on the current study. Impression: 1. There is a new nonobstructing 2.5 mm stone within the mid aspect of the left kidney. I see no other evidence of renal or ureteral stone. No hydronephrosis or hydroureter is seen. However, I do see a tiny punctate stone within the posterior dependent portion of the urinary bladder in the midline. Correlate clinically as to whether this may have been recently passed from the left kidney or ureter into the urinary bladder. 2. Small hiatal hernia, small fat-containing umbilical hernia, and evidence of prior cholecystectomy and hysterectomy are seen. 3. Mild degenerative disc disease at L4-L5 which has mildly progressed as compared to 01/12/2018 with new vacuum disc phenomena at this level.
--- NOTE | 2021-02-13 14:45 | XRAY ---
Exam: CT of the chest with IV contrast from 02/11/2021. CTDI: 15.79 mGy Comparison: CT of the chest without IV contrast from 12/10/2020. Indication: 60-year-old female with shortness of air; patient had Covid-19 in July,. Technique: Post-IV contrast axial images were obtained through the chest using the PE protocol during automated injection of 80 ML's of Isovue 370 IV contrast material. Reconstructed coronal and sagittal images were created and reviewed. Findings: The pulmonary arteries enhance well revealing no filling defects to suggest clot/emboli. The thoracic aorta reveals no evidence of aneurysm or dissection. The heart size is normal without pericardial effusion. There is a small hiatal hernia present. The thyroid gland appears grossly unremarkable. The marcos and mediastinum are remarkable for some small probable reactive lymph nodes. I also note some scattered granulomatous calcifications within the marcos and both lower lung kelly representing no change. I see no air space infiltrates. There is mild posterior compression atelectasis within both lower lung kelly. A pneumonic infiltrate, pneumothorax, suspicious soft tissue lung nodule, or pleural effusion is not seen. No parenchymal groundglass opacities are seen. The upper abdomen reveals an unremarkable appearance of both adrenal glands. Surgical clips consistent with prior cholecystectomy are seen. No other gross abnormality within the upper abdomen is seen. The skeleton reveals no evidence of fracture or aggressive bone lesion. Minimal anterior vertebral endplate spurring is seen within the thoracic spine. Impression: 1. There is no evidence of pulmonary embolism. 2. Mild bilateral posterior compression atelectasis is seen adjacent to the posterior pleural surfaces within the lower lung kelly. No definite infiltrates or other active lung disease is seen. 3. Old healed granulomatous disease and mildly prominent, probable reactive lymph nodes are again seen within the mediastinum and marcos. This appears similar to a CT of the chest with IV contrast from 08/20/2020. 4. Small stable hiatal hernia.
== END 2021-02-11 22:39 | disposition home or self-care (01) ==
LOC: ED 17:18
DX: N21.0 Calculus in bladder (principal); N20.0 Calculus of kidney; N39.0 Urinary tract infection, site not specified; K44.9 Diaphragmatic hernia without obstruction or gangrene; R59.0 Localized enlarged lymph nodes
CPT/HCPCS: 36000; 36415; 71260; 74176; 80053; 81001; 83690; 84484; 85025; 87086; 93041; 94760; 96365; 96374; 96375; 99284; J0696; J1885; J2270; A9270-GY

== ENCOUNTER 2021-06-09 18:15 | Emergency (ER) | payer OTHER ==
[2021-06-09] MEDS ORDERED: Zofran 4 MG/2 ML VIAL IV ONE (19:13)
[2021-06-09] MEDS ORDERED: Sodium Chloride 0.9% 1000 ML 1,000 ML IV STA (19:13)
[2021-06-09] MEDS ORDERED: MORPHINE SULFATE 4 MG INJ IV ONE ×2 (19:13→21:22)
[2021-06-09] MEDS ORDERED: Zofran 4 MG/2 ML VIAL ONE (19:18)
[2021-06-09] MEDS ORDERED: MORPHINE SULFATE 4 MG INJ ONE ×2 (19:18→21:25)
[2021-06-09] MEDS ORDERED: Sodium Chloride 0.9% 1000 ML 1,000 ML ONE (19:18)
[2021-06-09 19:25] LABS: Absolute Neutrophil Ct (ANC) 5.49 (1.4-6.9); BASOPHIL % 0.3 % (0.0-0.4); Basophil (Absolute #) 0.02 (0-0.4); Eosinophil % 1.1 % (0.00-5.0); Eosinophil (Absolute #) 0.08 (0-0.5); Hematocrit 36.5 % (35-47); Hemoglobin 12.3 gm/dl (12.0-16.0); Lymphocytes % 15.6 % (24.0-44.0); Mean Cell Volume 91.7 fl (78-100); Mean Corpuscular Hemoglobin 30.9 pg (26-32); Mean Corpuscular Hgb Concent. 33.7 g/dl (32-36); Mean Platelet Volume 9.6 fl (7.5-11.0); Monocyte (Absolute #) 0.35 (0.0-1.3); Platelet Count 245 K/mm3 (150-450); Red Blood Count 3.98 M/mm3 (4.1-5.4)
[2021-06-09 19:36] LABS: ALBUMIN 4.1 g/dL (3.5-5.0); ALKALINE PHOSPHATASE 116 U/L (38-126); ANION GAP 10.6 MEQ/L (5-15); BLOOD UREA NITROGEN 15 mg/dL (7-17); CHLORIDE 101 mmol/L (98-107); Calcium 9.2 mg/dL (8.4-10.2); Carbon Dioxide 30 mmol/L (22-30); Creatinine 1 0.82 mg/dL (0.52-1.04); EST GLOMERULAR FILTRATION RATE > 60.0 ML/MIN; Glucose 138 mg/dL (74-106); Potassium 3.4 mmol/L (3.5-5.1); SGOT/AST 24 U/L (14-36); SGPT/ALT 12 U/L (0-35); SODIUM 138 mmol/L (137-145); Total Protein 6.7 g/dL (6.3-8.2)
--- NOTE | 2021-06-09 21:06 | ERPHSYRPT ---
- History of Present Illness Time Seen by Provider: 06/09/21 18:30 Source: patient Exam Limitations: no limitations Patient Subjective Stated Complaint: PT states "I have a kidney stone they are watching on my left side, I have an appointment with a urologist on monday but today it hit me really hard. If I could just get this nausea and pain under control." Triage Nursing Assessment: PT presented alert and oriented X 3, skin pwd. PT ambulates with an upright steady gait. Pt holding her left side. Physician History: Patient is a 61-year-old female with a history of a left sided kidney stone diagnosed in February presents to our ED with complaints of left flank pain. Patient states that her physician has been monitoring her kidney stone. The kidney stone has not passed. Patient was on Flomax. Patient has been drinking plenty of water. Patient's pain is intermittent. Current pain is significant. No trauma. No fever. Patient currently has an appointment scheduled with a urologist on Monday Dr. Rodríguez. Symptoms are mild to moderate in intensity. No specific worsening improving factors. Patient voices no other complaints concerns at this time. patient had Toradol at 1730.. Timing/Duration: today Severity: moderate Modifying Factors: Improves With: other (Toradol) Associated Symptoms: denies symptoms, No nausea, No vomiting, No shortness of breath, No cough, No chills, No chest pain, No loss of appetite, No syncope, No seizure, No weakness Allergies/Adverse Reactions: meperidine HCl [From Demerol] Allergy (Verified 02/11/21 17:29) Nausea and Vomiting Sulfa (Sulfonamide Antibiotics) Allergy (Verified 02/11/21 17:29) Swelling Home Medications: Aspirin 81 mg PO DAILY 04/10/14 [History] Bupropion HCl Xl 150 mg [Wellbutrin XL 150 MG] 150 mg PO DAILY 01/11/18 [History] Lovastatin 40 mg PO DAILY 01/11/18 [History] Escitalopram Oxalate 10 mg [Lexapro 10 MG] 10 mg PO BID 07/29/20 [History] Metformin HCl Xr 500 mg [Glucophage XR 500 MG] 500 mg PO DAILY 07/29/20 [History] Hx Tetanus, Diphtheria Vaccination/Date Given: Yes Hx Influenza Vaccination/Date Given: Yes Hx Pneumococcal Vaccination/Date Given: No Immunizations Up to Date: Yes Travel Risk - International Travel Have you traveled outside of the country in past 3 weeks: No - Coronavirus Screening Are you exhibiting any of the following symptoms?: No Close contact with a COVID-19 positive Pt in past 14-21 Days: No - Vaccine Status Have you recieved a Covid-19 vaccination: No C[employer]: Moderna - Vaccination Dates Date of 2cond Vaccination (if applicable): didn't get - Review of Systems Constitutional: No Symptoms, No Fever, No Chills Eyes: No Symptoms Ears, Nose, & Throat: No Symptoms Respiratory: No Symptoms, No Cough, No Dyspnea Cardiac: No Symptoms, No Chest Pain, No Edema, No Syncope Abdominal/Gastrointestinal: No Symptoms, No Abdominal Pain, No Nausea, No Vomiting, No Diarrhea Genitourinary Symptoms: No Symptoms, No Dysuria Musculoskeletal: No Symptoms, No Back Pain, No Neck Pain Skin: No Symptoms, No Rash Neurological: No Symptoms, No Dizziness, No Focal Weakness, No Sensory Changes Psychological: No Symptoms Endocrine: No Symptoms Hematologic/Lymphatic: No Symptoms Immunological/Allergic: No Symptoms All Other Systems: Reviewed and Negative - Past Medical History Pertinent Past Medical History: Yes Neurological History: No Pertinent History ENT History: No Pertinent History Cardiac History: No Pertinent History Respiratory History: No Pertinent History Endocrine Medical History: Diabetes Type II Musculoskeletal History: No Pertinent History GI Medical History: GERD, Gallbladder Disease History: No Pertinent History Psycho-Social History: Depression Female Reproductive Disorders: Endometriosis, Fibroids - Past Surgical History Past Surgical History: Yes Neuro Surgical History: No Pertinent History Cardiac: Cardiac Catheterization Respiratory: No Pertinent History Gastrointestinal: Appendectomy, Cholecystectomy Genitourinary: No Pertinent History Musculoskeletal: No Pertinent History Female Surgical History: Section, Tubal Ligation, Other Other Surgical History: expl.lap for endometriosis with removal of endo.,c- section x two, colonoscopy,egd - Social History Smoking Status: Never smoker Exposure to second hand smoke: No Drug Use: none Patient Lives Alone: No - Female History Hx Now: No - Nursing Vital Signs Nursing Vital Signs: Initial Vital Signs Temperature 97.5 F 06/09/21 18:30 Pulse Rate 64 06/09/21 18:30 Respiratory Rate 20 06/09/21 18:30 Blood Pressure 138/67 06/09/21 18:30 O2 Sat by Pulse Oximetry 95 06/09/21 18:30 Pain Scale Pain Intensity 5 - Physical Exam General Appearance: no apparent distress, alert Eye Exam: PERRL/EOMI, eyes nml inspection Ears, Nose, Throat Exam: normal ENT inspection, TMs normal, pharynx normal, moist mucous membranes Neck Exam: normal inspection, non-tender, supple, full range of motion Respiratory Exam: normal breath sounds, lungs clear, airway intact, No respirato ry distress Cardiovascular Exam: regular rate/rhythm, normal heart sounds, normal peripheral pulses Gastrointestinal/Abdomen Exam: soft, normal bowel sounds, other (Left CVA tenderness to palpation.), No tenderness, No mass Back Exam: normal inspection, normal range of motion, No CVA tenderness, No vertebral tenderness Extremity Exam: normal inspection, normal range of motion, pelvis stable Neurologic Exam: alert, oriented x 3, cooperative, normal mood/affect, sensation nml, No motor deficits Skin Exam: normal color, warm, dry, No rash Lymphatic Exam: No adenopathy SpO2 Interpretation: normal SpO2: 95 O2 Delivery: Room Air - Course Nursing assessment & vital signs reviewed: Yes - CT Exams Abdomen/Pelvis CT Interpretation: Tele-radiologist Report (3 mm distal left ureteral stone. It is 1.2 cm proximal to the UVJ previously 3 cm. Increasing moderate left hydronephrosis with minimal perinephric stranding. Small hiatal hernia.) Ordered Tests: Active Orders 24 hr Category Date Time Status IV Insertion STAT Care 06/09/21 19:13 Completed ABDOMEN AND PELVIS W/0 CONTRAS [CT] Stat Exams 06/09/21 19:13 Taken CBC W DIFF Stat Lab 06/09/21 19:21 Completed CMP Stat Lab 06/09/21 19:21 Completed UA W/RFX UR CULTURE Stat Lab 06/09/21 19:21 Completed Medication Summary Discontinued Medications Generic Name Dose Route Start Last Admin Trade Name Freq PRN Reason Stop Dose Admin Sodium Chloride 1,000 mls @ 999 mls/hr 06/09/21 19:13 06/09/21 19:20 Sodium Chloride 0.9% 1000 Ml IV 06/09/21 20:13 999 mls/hr .Q1H1M STA Administration Sodium Chloride Confirm 06/09/21 19:18 Sodium Chloride 0.9% 1000 Ml Administered 06/09/21 19:19 Dose 1,000 mls @ ud .ROUTE .STK-MED ONE Morphine Sulfate 4 mg 06/09/21 19:13 06/09/21 19:19 Morphine Sulfate 4 Mg/Ml Injection IV 06/09/21 19:14 4 mg STAT ONE Administration Morphine Sulfate Confirm 06/09/21 19:18 Morphine Sulfate 4 Mg/Ml Injection Administered 06/09/21 19:19 Dose 4 mg .ROUTE .STK-MED ONE Morphine Sulfate 4 mg 06/09/21 21:22 06/09/21 21:26 Morphine Sulfate 4 Mg/Ml Injection IV 06/09/21 21:23 4 mg STAT ONE Administration Morphine Sulfate Confirm 06/09/21 21:25 Morphine Sulfate 4 Mg/Ml Injection Administered 06/09/21 21:26 Dose 4 mg .ROUTE .STK-MED ONE Ondansetron HCl 4 mg 06/09/21 19:13 06/09/21 19:19 Ondansetron Hcl 4 Mg/2 Ml Vial IV 06/09/21 19:14 4 mg STAT ONE Administration Ondansetron HCl Confirm 06/09/21 19:18 Ondansetron Hcl 4 Mg/2 Ml Vial Administered 06/09/21 19:19 Dose 4 mg .ROUTE .STK-MED ONE Lab/Rad Data: Laboratory Result Diagrams 06/09/21 19:21 06/09/21 19:21 Laboratory Results 06/09/21 06/09/21 06/09/21 Range/Units 19:21 19:21 19:21 WBC 7.0 (4.0-10.5) K/mm3 RBC 3.98 L (4.1-5.4) M/mm3 Hgb 12.3 (12.0-16.0) gm/dl Hct 36.5 (35-47) % MCV 91.7 (78-100) fl MCH 30.9 (26-32) pg MCHC 33.7 (32-36) g/dl RDW 12.0 (11.5-14.0) % Plt Count 245 (150-450) K/mm3 MPV 9.6 (7.5-11.0) fl Gran % 78.0 H (36.0-66.0) % Eos # (Auto) 0.08 (0-0.5) Absolute Lymphs (auto) 1.10 (1.0-4.6) Absolute Monos (auto) 0.35 (0.0-1.3) Lymphocytes % 15.6 L (24.0-44.0) % Monocytes % 5.0 (0.0-12.0) % Eosinophils % 1.1 (0.00-5.0) % Basophils % 0.3 (0.0-0.4) % Absolute Granulocytes 5.49 (1.4-6.9) Basophils # 0.02 (0-0.4) Sodium 138 (137-145) mmol/L Potassium 3.4 L (3.5-5.1) mmol/L Chloride 101 (98-107) mmol/L Carbon Dioxide 30 (22-30) mmol/L Anion Gap 10.6 (5-15) MEQ/L BUN 15 (7-17) mg/dL Creatinine 0.82 (0.52-1.04) mg/dL Estimated GFR > 60.0 ML/MIN Glucose 138 H (74-106) mg/dL Calcium 9.2 (8.4-10.2) mg/dL Total Bilirubin 1.50 H (0.2-1.3) mg/dL AST 24 (14-36) U/L ALT 12 (0-35) U/L Alkaline Phosphatase 116 (38-126) U/L Serum Total Protein 6.7 (6.3-8.2) g/dL Albumin 4.1 (3.5-5.0) g/dL Urine Color YELLOW (YELLOW) Urine Appearance CLOUDY (CLEAR) Urine pH 7.0 (5-6) Ur Specific [place] 1.020 (1.005-1.025) Urine Protein 100 (Negative) Urine Ketones TRACE (NEGATIVE) Urine Blood NEGATIVE (0-5) Flaco/ul Urine Nitrite NEGATIVE (NEGATIVE) Urine Bilirubin NEGATIVE (NEGATIVE) Urine Urobilinogen NEGATIVE (0-1) mg/dL Ur Leukocyte Esterase NEGATIVE (NEGATIVE) Urine WBC (Auto) 3-5 (0-5) /HPF Urine RBC (Auto) 3-5 (0-2) /HPF U Epithel Cells (Auto) RARE (FEW) /HPF Urine Bacteria (Auto) RARE (NEGATIVE) /HPF Urine Mucus (Auto) SLIGHT (NEGATIVE) /HPF Urine Culture Reflexed NO (NO) Urine Glucose NEGATIVE (NEGATIVE) mg/dL - Progress Progress: improved Progress Note: Patient reassessed. Pain significantly improved. Patient has a 3 mm distal ureteral stone on the left. There has been some progress and its travel down towards the UVJ since April. UA negative for UTI. BUN/creatinine both normal. Patient currently has an appointment scheduled with her urologist for Monday. We will discharge patient home. We will forward a prescription of [place] to [facility]. Plan of care discussed with patient. She agrees to follow-up with her urologist on Monday as planned. She voices no other complaints or concerns at this time. Portions of this note were created with voice recognition technology. There may be grammatical, spelling, punctuation or sound alike errors 06/09/21 21:39 06/10/21 01:53 Will see patient in: hospital (observation) Counseled pt/family regarding: lab results, diagnosis, need for follow-up, rad results - Departure Departure Disposition: Home Clinical Impression: Ureterolithiasis, Hydronephrosis, Hiatal hernia Condition: Stable Critical Care Time: No Referrals: ACACIA WHITE [Primary Care Provider] - Additional Instructions: Discharge/Care Plan MONICA LESTER TONIA was seen on 06/09/21 in the Emergency Room. The patient was counseled regarding Diagnosis,Lab results, Imaging studies, need for follow up and when to return to the Emergency Room. Prescriptions given: Discharge Note I have spoken with the patient and/or caregivers. I have explained the patient's condition, diagnosis and treatment plan based on the information available to me at this time. I have answered the patient's and/or caregiver's questions and addressed any concerns. The patient and/or caregivers have as good understanding of the patient's diagnosis, condition and treatment plan as can be expected at this point. The vital signs have been stable. The patient's condition is stable and appropriate for discharge from the emergency department. The patient will pursue further outpatient evaluation with the primary care physician or other designated or consulting physician as outlined in the discharge instructions. The patient and/or caregivers are agreeable to this plan of care and follow-up instructions have been explained in detail. The patient and/or caregivers have received these instruction. The patient/and or caregivers are aware that any significant change in condition or worsening of symptoms should prompt an immediate return to this or the closest emergency department or call 911. Prescriptions: Hydrocodone Bit/Acetaminophen [Hydrocodon-Acetaminophn 10-325] 1 each PO BID 5 Days #10 tablet
[2021-06-09 21:23] LABS: Appearance CLOUDY (CLEAR); Bacteria RARE /HPF (NEGATIVE); Bilirubin NEGATIVE (NEGATIVE); Blood NEGATIVE Ery/ul (0-5); Epithelial Cells RARE /HPF (FEW); Glucose NEGATIVE (NEGATIVE); Ketones TRACE (NEGATIVE); Leukocyte Esterase NEGATIVE (NEGATIVE); Mucus SLIGHT /HPF (NEGATIVE); Nitrite NEGATIVE (NEGATIVE); Protein,Urine Dip 100 (Negative); Urobilinogen NEGATIVE mg/dL (0-1)
[2021-06-09 22:07] VITALS: BP 114/57; PULSE 62
[2021-06-10 01:54] VITALS: O2SAT 95
--- NOTE | 2021-06-10 08:47 | XRAY ---
Indication: Left flank pain with nausea. History left ureteral calculus. Multiple contiguous axial images obtained through the abdomen and pelvis without contrast using renal stone protocol. Comparison: May 05, 2021. Lung bases again demonstrates left costophrenic angle calcified granuloma. No infiltrate or effusion. Heart not enlarged. Stable small hiatal hernia. Again 3 mm distal left ureter calculus now approximately 1.2 cm proximal to the UVJ, previously 3 cm. Proximal left ureter remains prominent with worsening moderate left hydronephrosis and new minimal perinephric stranding. No free fluid/air. Noncontrasted stomach and bowel loops remain nonobstructed. Again previous cholecystectomy, appendectomy, and hysterectomy. Remaining liver, pancreas, spleen, adrenal glands, right kidney, right ureter, bladder, and aorta are unremarkable for noncontrast exam. Impression: 1. Distal 3 mm left ureter calculus has minimally progressed distally with worsening obstructive uropathy as detailed. 2. Stable small hiatal hernia and left lung base calcified granuloma. 3. Remaining CT abdomen/pelvis without contrast exam is negative.
== END 2021-06-09 22:10 | disposition home or self-care (01) ==
LOC: ED 18:15
DX: N13.2 Hydronephrosis with renal and ureteral calculous obstruction (principal); K44.9 Diaphragmatic hernia without obstruction or gangrene
CPT/HCPCS: 36000; 36415; 74176; 80053; 81001; 85025; 96374; 96375; 96376; 99284; J2270; J2405